=== PATIENT | female | born 1945 | race Hispanic/Latino ===

== ENCOUNTER → 2018-03-04 | Day surgery (SDC) | payer BC, MEDICARE ==
[~2018-03-04] MED LIST: INSULIN REGULAR, HUMAN 100 UNIT/1 ML 3ML VIAL ONE; JANUVIA100 MG PO; LACTULOSE20 GM/30 M PO; LANTUS 3ML100 UNITS/ SC; LIDOCAINE HCL 2% LOCAL INJ 5 ML SDV VIAL INJ ONE; LOSARTAN POTAS100 MG PO; METFORMIN HCL1000 MG PO; METOPROLOL TART50 MG PO; MIDAZOLAM HCL 2 MG/2 ML VIAL ONE; POLY IRON PO; PROPOFOL IV EMULSION 10 MG/ML 20 ML VIAL ONE; SIMVASTATIN20 MG PO
--- OUTSIDE RECORDS SUMMARY | 2018-03-04 07:30 | XMS REPORT | Clinical Summary ---
Author Author [facility] Address Unknown Phone Unavailable Care Team Providers Care Range Master Name Role Phone Sherrell Mejia MD PCP Unavailable Allergies Active Allergy Reactions Severity Noted Date Comments Sulfamethoxazole-Trimetho 11/15/2016 prim Dapagliflozin 11/15/2016 Lisinopril 11/15/2016 Current Medications Prescription Sig. Disp. Refills Start End Date Status Date sitaGLIPtin (JANUVIA) 50 Take 50 mg by mouth Active MG tablet daily. metFORMIN (GLUCOPHAGE) Take 1,000 mg by mouth 2 Active 1,000 mg tablet (two) times a day with meals. metoprolol tartrate Take 50 mg by mouth 2 Active (LOPRESSOR) 50 mg tablet (two) times a day. simvastatin (ZOCOR) 20 MG Take 20 mg by mouth Active tablet nightly. losartan (COZAAR) 100 MG Take 100 mg by mouth Active tablet daily. LACTOBACILLUS ACIDOPHILUS Take by mouth. Active (PROBIOTIC ORAL) CALCIUM CARBONATE/VITAMIN Take by mouth. Active D3 (CALCIUM 600 WITH VITAMIN D3 ORAL) polysaccharide iron Take 150 mg by mouth Active complex (FERREX 150) 150 daily. mg iron capsule amLODIPine (NORVASC) 5 mg Take 5 mg by mouth daily. Active tablet nitrofurantoin Take 100 mg by mouth 4 Active (MACRODANTIN) 100 MG (four) times a day. capsule furosemide (LASIX) 20 mg Take 1 tablet (20 mg 30 tablet 0 11/12/19 11/12/19 Active tablet total) by mouth 2 (two) 18 19 times a day. omeprazole (PriLOSEC) 20 Take 20 mg by mouth 11/12/19 Discontin MG capsule daily. 18 ued citalopram (CeleXA) 20 MG Take 20 mg by mouth 11/12/19 Discontin tablet daily. 18 ued hydroCHLOROthiazide Take 25 mg by mouth 11/12/19 Discontin (HYDRODIURIL) 25 MG daily. 18 ued tablet gabapentin (NEURONTIN) Take 100 mg by mouth 3 11/12/19 Discontin 100 mg capsule (three) times a day. 18 ued cyclobenzaprine Take 1 tablet (5 mg 20 tablet 0 10/03/20 11/02/20 (FLEXERIL) 5 mg tablet total) by mouth 3 (three) 17 17 times a day as needed for muscle spasms for up to 30 days. Active Problems Problem Noted Date Secondary esophageal varices without bleeding 12/26/2016 Cirrhosis of liver without ascites 12/26/2016 Diverticulosis of large intestine without hemorrhage 12/26/2016 Encounters Date Type Specialty Care Team Description 11/14/2017 Orders Only Cardiology Yojana Araujo MA Chest pain , unspecified type (Primary Dx) 11/12/2017 Office Visit Cardiology Clive Caruso MD Chest pain , unspecified type (Primary Dx); Essential hypertension; Type 2 diabetes mellitus without complication, without long-term current use of insulin 10/30/2017 [facility] Radiology Elsie Mejia MD Nontoxic multinodular Encounter goiter 10/30/2017 [facility] Radiology Elsie Mejia MD Encounter 10/30/2017 Ancillary Radiology Elsie Mejia MD Orders 10/24/2017 Transcribe Access Elsie Mejia MD Nontoxic multinodular Orders goiter (Primary Dx) 10/03/2017 Emergency Emergency Medicine Homer Turner MD Tension headache (Primary Dx); Cervical sprain, initial encounter 05/04/2017 [facility] Radiology Lauro Hardy MD Nonvisualization of Encounter gallbladder; Abdominal pain, right upper quadrant; Hepatic cirrhosis, unspecified hepatic cirrhosis type; Fatty metamorphosis of liver 04/17/2017 Procedure Pass Radiology 04/17/2017 Transcribe Access Lauro Hardy MD Nonvisualization of Orders gallbladder (Primary Dx); Abdominal pain, right upper quadrant; Hepatic cirrhosis, unspecified hepatic cirrhosis type; Fatty metamorphosis of liver after 03/03/2017 Family History Medical History Relation Name Comments Anuerysm Brother Cancer Father GASTRIC CANCER Colon cancer Mother Relation Name Status Comments Brother Alive Father Maternal Grandfather Maternal Grandmother Mother Paternal Grandfather Paternal Grandmother Sister Alive Social History Tobacco Use Types Packs/Day Years Used Date Never Smoker Smokeless Tobacco: Never Used Alcohol Use Drinks/Week oz/Week Comments No Sex Assigned at Date Recorded Not on file Last Filed Vital Signs Vital Sign Reading Time Taken Blood Pressure 130/80 11/12/2017 11:32 AM SERVICE ORDER TAKER Pulse 67 11/12/2017 11:32 AM SERVICE ORDER TAKER Temperature 37 C (98.6 F) 11/12/2017 11:32 AM SERVICE ORDER TAKER Respiratory Rate 20 10/03/2017 4:28 AM SERVICE ORDER TAKER Oxygen Saturation 97% 11/12/2017 11:32 AM SERVICE ORDER TAKER Inhaled Oxygen - - Concentration Weight 67.9 kg (149 lb 12.8 oz) 11/12/2017 11:32 AM SERVICE ORDER TAKER Height 154.9 cm (5' 1") 11/12/2017 11:32 AM SERVICE ORDER TAKER Body Mass Index 28.3 11/12/2017 11:32 AM SERVICE ORDER TAKER Plan of Treatment Health Maintenance Due Date Last Done Comments FOOT EXAM 1957 OPHTHALMOLOGY EXAM 1957 URINE MICROALBUMIN 1957 COLONOSCOPY 1997 ZOSTER VACCINE 2007 PNEUMOCOCCAL 2012 POLYSACCHARIDE VACCINE AGE 65 AND OVER PNEUMOCOCCAL-13 2012 INFLUENZA VACCINE 06/11/2018 MAMMOGRAM 08/08/2018 08/08/2016, 04/18/2015, 03/18/2014, Additional history exists Procedures Procedure Name Priority Date/Time Associated Diagnosis Comments ECHOCARDIOGRAM 2D Routine 11/15/2017 Chest pain, unspecified Results for this COMPLETE W MMODE SPECTRAL 9:47 AM SERVICE ORDER TAKER type procedure are in the COLOR DOPPLER (32589) results section. after 03/03/2017 Results * Echocardiogram complete w contrast and 3D if needed (11/15/2017 9:47 AM) Component Value Ref Range Ao Root Diameter 2.70 cm AoV Area, Vmax 2.16 cm2 AoV Area, VTI 2.02 cm2 AoV Mean PG 6.33 mmHg AoV Peak PG 11.95 mmHg AoV Vmax 1.73 m/s AoV VTI 0.31 m IVS,d 1.23 (A) 0.6 - 1.2 cm IVS/LVPW,2D 0.86 Left Atrium Dimension 5.39 cm Anterior LV,d 4.58 cm LV EF,2D 83.89 % LV,s 2.49 cm LVOT area 2.27 cm2 LVOT Diam,S 1.70 cm LVOT Vmax 1.64 m/s LVOT VTI 0.28 m LVPWD,d 1.44 cm PV Pk Grad 10.57 mmHg PV VMAX 1.63 m/s RVSP (TR) 36.85 mmHg TR Vpeak 2.67 mm/s MV E A ratio 0.56 mmHg TR pk grad 28.41 mmHg E wave decelartion time 297.36 msec MV Peak A Boo 1.11 m/s MV valve area p 1/2 2.55 cm2 method MV Peak E Boo 0.62 m/s MV stenosis pressure 1/2 86.23 ms time AV LVOT peak gradient 10.71 mmHg RVSP 36.85 mmHg Ao Root Diameter 2.70 cm MV mean gradient 1.90 mmHg LV SYS VOL 22.13 ml LV ECHEVERRIA VOL 96.27 ml LA area s A4C 20.48 cm2 LV SV Teich 2D 74.14 ml LV Vol s Teich PSAX 22.13 ml LVOT CO 5.34 l/min LVOT HR for LVOT CO 84.76 bpm MR peak grad 4.31 mmHg MV Vmax 1.04 m MV VTI Tips 0.19 m AoV Vmn 1.20 IVS s 2D 1.58 LV FS Teich 2D 45.59 MV AE ratio 1.78 LV FS Cube 2D 45.59 LVOT Vmn 1.09 Aov area Vmn 2.06 cm2 LVOT mean grad 5.30 mmHg IVS pct thck PLAX 28.45 % LV SV Cube 2D 80.51 ml LV vol d cube 2D 95.97 ml LV vol s cube 2D 15.46 ml LVPW pct thck PLAX 21.03 % LVPW s PLAX 1.74 cm MV Decel slope 2.09 m/s2 LA Vol MOD A4C 58.12 ml Velocity Ratio (V1/V2) 0.95 m/s EF 77.01 % E/A ratio 0.56 Specimen Performing Laboratory [facility] [address] [place] [address] Narrative The left ventricle chamber size is normal. Left Ventricular ejection fraction is 65 - 70%. Right ventricular size is normal. No hemodynamically significant valvular abnormalities. Spectral Doppler shows impaired relaxation pattern of left ventricular diastolic filling. Normal filling pressures. Inadequate TR jet to estimate pulmonary pressures. * ECG 12 lead (11/12/2017 12:44 PM) Only the most recent of 2 results within the time period is included. Component Value Ref Range Ventricular rate 64 Atrial rate 64 NV interval 158 QRSD interval 88 QT interval 454 QTC interval 468 P axis 1 51 QRS axis 1 81 T wave axis 6 EKG impression Normal sinus rhythm-Possible Inferior infarct , age undetermined-Cannot rule out Anterior infarct , age undetermined-Abnormal ECG-In automated comparison with ECG of 03-OCT-2017 01:56,-T wave inversion now evident in Inferior leads-Nonspecific T wave abnormality now evident in Anterior leads- Specimen Performing Laboratory [facility] [address] [place] [address] * Cytology (non-gynecological) request (10/30/2017 2:52 PM) Component Value Ref Range Cytology See link below for PDF Lab Report (non-gynecological) report Result status This is Final Report to [id number] Specimen Performing Laboratory [facility] DEPARTMENT OF PATHOLOGY AND GENOMIC MEDICINE [address] [place] [id number] * US Thyroid Biopsy (10/30/2017 2:38 PM) Specimen Performing Laboratory [facility] [address] [place] [address] Narrative EXAMINATION:US THYROID BIOPSY CLINICAL HISTORY:E04.2 Nontoxic multinodular goiter, E04.2 COMPARISON:None. TECHNIQUE: The risks, benefits, and alternatives were discussed with the patient, and written informed consent was obtained. A site for needle placement was selected and theRight neck.The skin was prepped and draped in the usual sterile fashion. After local administration of 1 % lidocaine, and using ultrasound guidance, five 25-gauge needle aspiration samples were obtained. The specimenswere given to a electrical design technologist in attendance. The specimens were evaluated.The pathologist in attendance stated that the specimens were adequate. The patient has been instructed to follow-up per for the results of the biopsy. IMPRESSION: There were no complications. [facility]-[id number] Procedure Note Interface, Radiology Results Incoming - 10/30/2017 3:35 PM SERVICE ORDER TAKER EXAMINATION: US THYROID BIOPSY CLINICAL HISTORY: E04.2 Nontoxic multinodular goiter, E04.2 COMPARISON: None. TECHNIQUE: The risks, benefits, and alternatives were discussed with the patient, and written informed consent was obtained. A site for needle placement was selected and theRight neck. The skin was prepped and draped in the usual sterile fashion. After local administration of 1 % lidocaine, and using ultrasound guidance, five 25-gauge needle aspiration samples were obtained. The specimens were given to a electrical design technologist in attendance. The specimens were evaluated. The pathologist in attendance stated that the specimens were adequate. The patient has been instructed to follow-up per for the results of the biopsy. IMPRESSION: There were no complications. [facility]-[id number] * ECG ED Preliminary Interpretation - NOT AN ORDER (10/03/2017 6:12 AM) Narrative Homer Turner MD 10/03/20176:12 AM ECG ED Preliminary Interpretation - Not an Order Performed by: HOMER TURNER Authorized by: HOMER TURNER ECG reviewed by ED Physician in the absence of a invoice checker: yes Interpretation: Interpretation: normal Rate: ECG rate:74 Rhythm: Rhythm: sinus rhythm QRS: QRS axis:Normal QRS intervals:Normal Conduction: Conduction: normal ST segments: ST segments:Normal T waves: T waves: non-specific and flattening Flattening:V2 and V3 Comments: Completed on 10/03/2017 at 0156. * CTA Neck W Wo Contrast (10/03/2017 3:20 AM) Specimen Performing Laboratory [address] [address] Narrative EXAMINATION: CT ANGIOGRAM NECK W WO CONTRAST CLINICAL HISTORY: left sided neck painHTNfamily hx of aneurysm COMPARISON:None TECHNIQUE: Imaging of the cervical circulation was obtained from the upper thorax to the skull base during the arterial phase of enhancement. Postprocessing was performed with MIP multiplanar and 3D reconstructed images. CT scans are performed using radiation dose reduction techniques. Technical factors are evaluated and adjusted to ensure appropriate moderation of exposure. Automated dose management technology is applied to adjust radiation exposure while achieving a diagnostic quality image. FINDINGS: Left-sided aortic arch with normal branching pattern. Mild calcific plaque within the aortic arch. Retropharyngeal course of the bilateral carotid arteries as a variant. Mild calcific plaque within the bilateral proximal internal carotid arteries, without significant stenosis. The common carotid arteries, carotid bulbs, internal carotid arteries and external carotid arteries are opacified with 0% stenosis by NASCET criteria. The vertebral arteries are patent throughout the visualized cervical segments without significant stenosis. The vertebral arteries are roughly codominant. Visualized upper mediastinum shows no mass lesion. Lung apices are clear. Visualized soft tissues shows no mass, adenopathy or fluid collection. Visualized osseous structures shows no acute fracture or dislocation. Few thyroid nodules up to 0.9 cm in the right lower lobe. Typically no follow- up is recommended for nodules of this size. IMPRESSION: No hemodynamically significant narrowing of the cervical vessels by NASCET criteria. [facility]-[id number] Procedure Note Interface, Radiology Results Incoming - 10/03/2017 3:31 AM SERVICE ORDER TAKER EXAMINATION: CT ANGIOGRAM NECK W WO CONTRAST CLINICAL HISTORY: left sided neck pain HTN family hx of aneurysm COMPARISON: None TECHNIQUE: Imaging of the cervical circulation was obtained from the upper thorax to the skull base during the arterial phase of enhancement. Postprocessing was performed with MIP multiplanar and 3D reconstructed images. CT scans are performed using radiation dose reduction techniques. Technical factors are evaluated and adjusted to ensure appropriate moderation of exposure. Automated dose management technology is applied to adjust radiation exposure while achieving a diagnostic quality image. FINDINGS: Left-sided aortic arch with normal branching pattern. Mild calcific plaque within the aortic arch. Retropharyngeal course of the bilateral carotid arteries as a variant. Mild calcific plaque within the bilateral proximal internal carotid arteries, without significant stenosis. The common carotid arteries, carotid bulbs, internal carotid arteries and external carotid arteries are opacified with 0% stenosis by NASCET criteria. The vertebral arteries are patent throughout the visualized cervical segments without significant stenosis. The vertebral arteries are roughly codominant. Visualized upper mediastinum shows no mass lesion. Lung apices are clear. Visualized soft tissues shows no mass, adenopathy or fluid collection. Visualized osseous structures shows no acute fracture or dislocation. Few thyroid nodules up to 0.9 cm in the right lower lobe. Typically no follow- up is recommended for nodules of this size. IMPRESSION: No hemodynamically significant narrowing of the cervical vessels by NASCET criteria. [facility]-[id number] * CT Head Wo Contrast (10/03/2017 3:05 AM) Specimen Performing Laboratory [facility] [address] [place] [address] Narrative EXAMINATION: CT HEAD WO CONTRAST CLINICAL HISTORY: headacheneck painfamily hx aneurysm COMPARISON:CT 04/18/2016. TECHNIQUE: Noncontrast enhanced images of the brain were obtained from the skull base to the vertex. Both soft tissue and bone reconstruction algorithms were performed. CT scans are performed using radiation dose reduction techniques (iterative reconstruction and/or automated exposure control). Technical factors are evaluated and adjusted to ensure appropriate moderation of exposure. Automated dose management technology is applied to adjust radiation exposure while achieving a diagnostic quality image. FINDINGS: Mild generalized brain parenchymal volume loss. Nonspecific hypoattenuation of the supratentorial white matter, likely chronic microangiopathic changes. Mild cerebrovascular calcifications. The brain parenchyma is otherwise unremarkable. The frias-white matter differentiation is preserved. No evidence of acute intra or extra-axial hemorrhage, mass, mass effect or acute territorial infarction. There is no acute hydrocephalus. Basal cisterns are patent. No acute soft tissue hematoma or laceration. No skull fractures or aggressive bony lesions. Paranasal sinuses and mastoid air cells are clear. Orbits are normal. IMPRESSION: No acute intracranial abnormality identified. [facility]-[id number] Procedure Note Hm Interface, Radiology Results Incoming - 10/03/2017 3:12 AM SERVICE ORDER TAKER EXAMINATION: CT HEAD WO CONTRAST CLINICAL HISTORY: headache neck pain family hx aneurysm COMPARISON: CT 04/18/2016. TECHNIQUE: Noncontrast enhanced images of the brain were obtained from the skull base to the vertex. Both soft tissue and bone reconstruction algorithms were performed. CT scans are performed using radiation dose reduction techniques (iterative reconstruction and/or automated exposure control). Technical factors are evaluated and adjusted to ensure appropriate moderation of exposure. Automated dose management technology is applied to adjust radiation exposure while achieving a diagnostic quality image. FINDINGS: Mild generalized brain parenchymal volume loss. Nonspecific hypoattenuation of the supratentorial white matter, likely chronic microangiopathic changes. Mild cerebrovascular calcifications. The brain parenchyma is otherwise unremarkable. The frias-white matter differentiation is preserved. No evidence of acute intra or extra-axial hemorrhage, mass, mass effect or acute territorial infarction. There is no acute hydrocephalus. Basal cisterns are patent. No acute soft tissue hematoma or laceration. No skull fractures or aggressive bony lesions. Paranasal sinuses and mastoid air cells are clear. Orbits are normal. IMPRESSION: No acute intracranial abnormality identified. [facility]-[id number] * Estimated GFR (10/03/2017 2:03 AM) Component Value Ref Range GFR Non Af Amer 71 mL/min/1.73 m2 GFR Af Amer 86 mL/min/1.73 m2 Comment: Chronic kidney disease: <60 mL/min/1.73m2 Kidney failure: <15 mL/min/1.73m2 The estimated GFR is calculated from the IDMS-traceable Modification of Diet in Renal Disease Equation. The accuracy of the calculation is poor when the creatinine is normal. Calculated values >90 mL/min/1.73m2 are not reported. This equation has not been validated in children (<18 years), women, the elderly (>70 years), or ethnic groups other than Caucasians and Americans. Specimen Performing Laboratory Plasma specimen [facility] DEPARTMENT OF PATHOLOGY AND GENOMIC MEDICINE [address] [place] [address] [place] [address] * Troponin (10/03/2017 2:03 AM) Component Value Ref Range Troponin <0.01 0.00 - 0.60 ng/mL Comment: 0.11 - 1.49 ng/ml May indicate increased risk of acute coronary syndrome. >=1.5 ng/ml Consistent with acute myocardial infarction. The diagnostic value of a single normal or non-diagnostic result is questionable. Serial samples at 2-6 hour intervals are required to rule out acute myocardial injury. Specimen Performing Laboratory Plasma specimen [facility] DEPARTMENT OF PATHOLOGY AND GENOMIC MEDICINE [address] [place] [address] [place] [address] * CBC with platelet and differential (10/03/2017 2:03 AM) Component Value Ref Range WBC 2.7 (L) 4.2 - 11.0 k/uL RBC 3.62 (L) 4.04 - 5.86 m/uL HGB 11.2 (L) 11.5 - 15.3 g/dL HCT 31.5 (L) 34.0 - 45.0 % MCV 87.0 80.0 - 98.0 fL MCH 30.9 27.0 - 34.0 pg MCHC 35.6 31.5 - 36.5 g/dL RDW - SD 41.9 37.0 - 51.0 fL MPV 11.0 (H) 7.4 - 10.4 fL Platelet count 93 (L) 150 - 400 k/uL Nucleated RBC 0.00 /100 WBC Neutrophils 58.8 36.0 - 66.0 % Lymphocytes 23.9 (L) 24.0 - 44.0 % Monocytes 11.4 (H) 0.0 - 6.0 % Eosinophils 4.8 0.0 - 6.0 % Basophils 0.7 0.0 - 1.2 % Immature granulocytes 0.4 0.0 - 1.0 % Specimen Performing Laboratory Blood [facility] DEPARTMENT OF PATHOLOGY AND GENOMIC MEDICINE [address] [place] [address] * Creatine kinase, total (CPK) (10/03/2017 2:03 AM) Component Value Ref Range Creatine kinase 80 61 - 224 U/L Specimen Performing Laboratory Plasma specimen [facility] DEPARTMENT OF PATHOLOGY AND GENOMIC MEDICINE [address] [place] [address] * Comprehensive metabolic panel (10/03/2017 2:03 AM) Component Value Ref Range Sodium 142 135 - 150 mEq/L Potassium 3.6 3.5 - 5.0 mEq/L Chloride 107 100 - 109 mEq/L CO2 21 (L) 24 - 32 mmol/L Anion gap 14 7 - 15 mEq/L Comment: Starting from February , anion gap calculation no longer incorporates potassium. Please note the change. BUN 9 7 - 18 mg/dL Creatinine 0.8 0.8 - 1.5 mg/dL Glucose 206 (H) 65 - 100 mg/dL Calcium 8.9 8.6 - 10.7 mg/dL Protein 6.9 6.3 - 8.2 g/dL Albumin 3.4 3.2 - 5.0 g/dL A/G ratio 1.0 0.7 - 3.8 Alkaline phosphatase 184 (H) 30 - 120 U/L AST 43 (H) 15 - 37 U/L ALT 40 30 - 65 U/L Total bilirubin 0.9 0.2 - 1.2 mg/dL Specimen Performing Laboratory Plasma specimen [facility] DEPARTMENT OF PATHOLOGY AND GENOMIC MEDICINE [address] [place] [address] * MRI Abdomen W Wo Contrast (05/04/2017 10:43 AM) Specimen Performing Laboratory [facility] [address] [place] [address] Narrative EXAMINATION:MRI ABDOMEN W WO CONTRAST CLINICAL HISTORY:R93.2 Abnormal findings on diagnostic imaging of liver and biliary tract, R10.11 Right upper quadrant pain, R93.2 TECHNIQUE: Multiplanar multisequence MR images of the abdomen were obtained pre - and post dynamic intravenous administration of Gadolinium.. COMPARISON:October 16, 2006, ultrasound April 19, 2016 IMPRESSION: 1.Diffuse cirrhotic changes throughout the liver unchanged from prior no focal mass is present. 2.Findings compatible portal hypertension. Spleen no remains enlarged measuring at least 14 cm. Numerous paraesophageal varices, splenic hilar varices are present. There is recanalization of the paraumbilical vein 3.Portal vein is not dilated and there is no evidence of thrombus. 4.The pancreas, adrenals, and kidneys are within normal limits 5.No significant adenopathy free fluid present 6.The small bowel and colon are unremarkable. 7.No intra or extrahepatic ductal dilatation is present. Gallbladder is unremarkable 8.Lung Bases are clear SUMMARY: No interval change from prior. Diffuse cirrhotic changes throughout the liver. Findings compatible with portal hypertension Incidental Abdominal findings [facility] PQRS #[id number] required reporting elements: Liver < 0.5 cm: none Recommendation:n/a Cystic Renal < 1 cm: none Recommendation:n/a Adrenal < 1 cm:none Recommendation:n/a [id number] Procedure Note Hm Interface, Radiology Results Incoming - 05/04/2017 11:06 AM CDT EXAMINATION: MRI ABDOMEN W WO CONTRAST CLINICAL HISTORY: R93.2 Abnormal findings on diagnostic imaging of liver and biliary tract, R10.11 Right upper quadrant pain, R93.2 TECHNIQUE: Multiplanar multisequence MR images of the abdomen were obtained pre - and post dynamic intravenous administration of Gadolinium. . COMPARISON: October 16, 2006, ultrasound April 19, 2016 IMPRESSION: 1. Diffuse cirrhotic changes throughout the liver unchanged from prior no focal mass is present. 2. Findings compatible portal hypertension. Spleen no remains enlarged measuring at least 14 cm. Numerous paraesophageal varices, splenic hilar varices are present. There is recanalization of the paraumbilical vein 3. Portal vein is not dilated and there is no evidence of thrombus. 4. The pancreas, adrenals, and kidneys are within normal limits 5. No significant adenopathy free fluid present 6. The small bowel and colon are unremarkable. 7. No intra or extrahepatic ductal dilatation is present. Gallbladder is unremarkable 8. Lung Bases are clear SUMMARY: No interval change from prior. Diffuse cirrhotic changes throughout the liver. Findings compatible with portal hypertension Incidental Abdominal findings [facility] PQRS #[id number] required reporting elements: Liver < 0.5 cm: none Recommendation: n/a Cystic Renal < 1 cm: none Recommendation: n/a Adrenal < 1 cm: none Recommendation: n/a [id number] * POC creatinine (05/04/2017 9:33 AM) Component Value Ref Range POC creatinine 0.8 0.8 - 1.5 mg/dl Specimen Performing Laboratory Blood [facility] DEPARTMENT OF PATHOLOGY AND GENOMIC MEDICINE [address] [address] after 03/03/2017 Insurance Payer Benefit Subscriber ID Type Phone Address Plan / Group [facility] xxxxxxxxxxxx HMO [facility] IN ARE[place]/HMO BLUE [employer]S MEDICARE MEDICARE xxxxxxxxxx Medicare [place], [place] PART A AND B
--- OUTSIDE RECORDS SUMMARY | 2018-03-04 07:30 | XMS REPORT ---
Author Author Admin, [place] Organization [facility] Address Unknown Phone Unavailable Allergies, Adverse Reactions, Alerts Allergy Name Reaction Description Start Date Severity Status Provider BACTRIM Swelling Critical Active Blanca Morales MD LISINOPRIL (LISINOPRIL TABS) Moderate Active Elsie Mejia MD Conditions or Problems Problem Name Problem Code Onset Date Status Entry Date Provider Comment Standard Description Annotate Diabetic retinopathy 250.50 Active Angela Virgilio Junior DO Diabetes mellitus with ophthalmic manifestations, type II or unspecified type, not stated as uncontrolled mild, noted 01/26 Optho: Dr. Mcclendon Leg edema, bilateral 782.3 Active Elsie Mejia MD Edema Left ventricular diastolic dysfunction 429.9 Active Elsie Mejia MD Heart disease, unspecified Seen on echo 05/10/16 Left ventricular hypertrophy 429.3 Active Elsie Mejia MD Cardiomegaly Mild, seen on echo 05/10/16 Breast pain, bilateral 611.71 Active Elsie Mejia MD Mastodynia Dry mouth 527.7 Active Elsie Mejia MD Disturbance of salivary secretion Leg pain, bilateral 729.5 Active Elsie Mejia MD Pain in limb Of the inner thighs that radiates down Multiple thyroid nodules 241.1 Active Angela Virgilio Pariani DO Nontoxic multinodular goiter 10/27 FNA: rare follicular cell culters, neg for malignancy Allergic rhinitis 477.9 Active Angela Virgilio Pariani DO Allergic rhinitis, cause unspecified Hepatic encephalopathy 572.2 Active Angela Virgilio Pariani DO Hepatic encephalopathy 04/27 ammonia ~ 89 Abnormal EKG 794.31 Active Angela Junior DO Nonspecific abnormal electrocardiogram [ECG] [EKG] 02/25 Sinus isaac, Low V QRS, pos inf infarct (seen on previous EKGs) Cardio: Dr. Brown Memory impairment 780.9 Active Angela Junior DO Other general symptoms Splenomegaly 789.2 Active Angela Junior DO Splenomegaly mild, 12.5 cm per U/S 10/26 2/2 Fatty Liver Depression, major 296.20 Active Angela Junior DO Major depressive disorder, single episode, unspecified degree 03/27 PHQ 9 =21 (severe, on Celexa 40 mg) Needs vaccination for influenza V04.81 Active Angela uJnior DO Need for prophylactic vaccination and inoculation against influenza Preventive health care V70.0 Active Angela Junior DO Routine general medical examination at a health care facility Osteoporosis, Screening V82.81 Active Angela Junior DO Screening for osteoporosis Vaccine against disease V05.9 Active Elsie Mejia MD Need for prophylactic vaccination and inoculation against unspecified single disease Fatigue 780.79 Active Angela Junior DO Other malaise and fatigue 07/28 [place] Sleepiness Scale=13 Anxiety 300.00 Active Angela Junior DO Anxiety state, unspecified 11/27 MICHELLE 7=12 (moderate anxiety) on Celexa 20 mg Pancytopenia 284.1 Active Angela Virgilio Junior DO Pancytopenia 2/2 splenomegaly 2/2 Fatty Liver Heme: Dr. 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 Alex Vaughan Vitamin D deficiency 268.9 Active Elsie Mejia MD Unspecified vitamin D deficiency Cyst of maxillary sinus 478.19 Active Elsie Mejia MD Other disease of nasal cavity and sinuses 21mm retention cyst in the right maxillary sinus Family history of brain aneurysm V17.2 Active Elsie Mejia MD Family history of other neurological diseases Tinnitus, subjective 388.31 Active Angela Virgilio Robertsdomitila DO Subjective tinnitus ENT: Dr. Alex Vaughan Dystrophic nails 703.8 Active Mahendra Landis MD Other specified diseases of nail OVERWEIGHT 278.02 Active Elsie Mejia MD Overweight MAMMOGRAM, SCREENING V76.12 Active Elsie Mejia MD Other screening mammogram Hx of diverticulitis V12.79 Active Angela Virgilio Alejandradomitila Personal history of other diseases of digestive system GI: Dr. Bob CIRRHOSIS 571.5 Active Angela Junior DO Cirrhosis of liver without mention of alcohol non-alcoholic, hx of GE varices 2/2 fatty liver dz Hepatology: Dr. Hardy INSOMNIA 780.52 Active Angela Junior DO Insomnia, unspecified HELICOBACTER PYLORI GASTRITIS, HX OF V12.79 Active Elsie Mejia MD Personal history of other diseases of digestive system DIABETES MELLITUS 250.00 Active Angelaeliane Junior DO Diabetes mellitus without mention of complication, type II or unspecified type, not stated as uncontrolled FATTY LIVER DISEASE 571.8 Active Elsie Mejia MD Other chronic nonalcoholic liver disease Hepatology: was seeing Dr. Hardy, but he no longer takes her insurance s/p Liver Biopsy 10/23 steatohepatitis G3, stage 3-4 GERD 530.81 Active Angela Junior DO Esophageal reflux GI: Dr. 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 Elsie Mejia MD Congenital anomaly of gastrointestinal vessel UTI 599.0 Inactive Angela Virgilio Pariani DO Urinary tract infection, site not specified UTI ICD-599.0 Inactive Angela Virgilio Pariani DO 01/13 Urine odor ICD-791.9 Inactive Angela Virgilio Pariani DO Urinary tract infection 599.0 Inactive Elsie Mejia MD Urinary tract infection, site not specified Urinary tract infection ICD-599.0 Inactive Elsie Mejia MD Chest pain, NOS ICD-786.50 Inactive Angela Virgilio Pariani DO BRONCHITIS, ACUTE ICD-466.0 Inactive Elsie Mejia MD Cough ICD-786.2 Inactive Elsie Mejia MD Elevated creatinine ICD-790.4 Inactive Angela Virgilio Pariani DO Body aches ICD-780.99 Inactive Angela Virgilio Pariani DO Myalgia ICD-729.1 Inactive Angela Virgilio Pariani DO Hepatic encephalopathy 572.2 Inactive Angela Virgilio Pariani DO Hepatic encephalopathy 04/27 ammonia ~ 89 Increased ammonia level 790.99 Inactive Angela Virgilio Pariani DO Other nonspecific findings on examination of blood 04/27 ammonia ~ 89 Syncope ICD-780.2 Inactive Angela Virgilio Pariani DO Abdominal pain ICD-789.00 Inactive Angela Virgilio Pariani DO Anemia ICD-285.9 Inactive Angela Virgilio Pariani DO Black stools ICD-578.1 Inactive Angela Virgilio Pariani DO Liver lesion ICD-573.8 Inactive Angela Virgilio Pariani DO Need for prophylactic vaccination against streptococcus pneumoniae ( Pneumococcus) V03.82 Inactive Angela Virgilio Pariani DO Need for prophylactic vaccination against Streptococcus pneumoniae [ pneumococcus] Irritability ICD-799.22 Inactive Angela Virgilio Pariani DO Intertrigo, candidal ICD-695.89 Inactive Angela Virgilio Pariani DO Vaginal candidiasis ICD-112.1 Inactive Angela Virgilio Pariani DO Pericarditis, 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 Inactive Elsie Mejia MD BMI 29.0-29.9 Inactive Angela Virgilio Pariani DO Supraclavicular lymphadenopathy ICD-785.6 Inactive Angela Virgilio Pariani DO Dizziness ICD-780.4 Inactive Angela Virgilio Pariani DO Localized swelling on lower legs, bilateral ICD-782.2 Inactive Angela Virgilio Pariani DO Abdominal pain, acute left side ICD-789.00 Inactive Elsie Mejia MD Abdominal pain, right lower quadrant ICD-789.03 Inactive Elsie Mejia MD Atypical face pain ICD-350.2 Inactive Elsie Mejia MD Cellulitis, digit 681.9 Inactive Elsie Mejia MD Cellulitis and abscess of unspecified digit right great toe Cellulitis, digit ICD-681.9 Inactive Elsie Meija MD Headache, atypical ICD-784.0 Inactive Elsie Mejia MD UTI ICD-599.0 Inactive Elsie Mejia MD Diabetic peripheral neuropathy ICD-250.60 Inactive Angela Junior DO Chest pain, atypical ICD-786.59 Inactive Elsie Mejia MD Ganglion cyst, wrist, left ICD-727.41 Inactive Elsie Mejia MD Neck pain, chronic ICD-723.1 Inactive Elsie Mejia MD MUSCLE CRAMPS ICD-729.82 Inactive Elsie Mejia MD CELLULITIS ICD-682.9 Inactive Elsie Mejia MD 2014 INJURY, LEG ICD-916.8 Inactive Elsie Mejia MD TINEA CRURIS ICD-110.3 Inactive Elsie Mejia MD URINARY TRACT INFECTION ICD-599.0 Inactive Elsie Mejia MD NEPHROLITHIASIS ICD-592.0 Inactive Elsie Mejia MD RECURRENT UTI'S, HX OF ICD-V13.00 Inactive Elsie Mejia MD THROMBOCYTOPENIA ICD-287.5 Inactive Angela Robertsani DO DIVERTICULAR DISEASE ICD-562.10 Inactive Angela Virgilio Pariani DO NEED PROPH VACCINATION W/UNSPEC COMB VACCINE V06.9 Inactive 2013 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 Need for prophylactic vaccination with unspecified combined vaccine NEED PROPH VACCINATION W/UNSPEC COMB VACCINE ICD-V06.9 Inactive 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 NEED PROPH VACCINATION W/UNSPEC COMB VACCINE ICD-V06.9 Inactive Elsie Mejia MD NEED PROPH VACC&INOCULAT AGAINST VIRAL HEP ICD-V05.3 Inactive Elsie Mejia MD NEED PROPHYLACTIC VACCINATION&INOCULATION FLU ICD-V04.81 Inactive Angela Virgilio Pariani DO Urine odor 791.9 Resolved Angela Virgilio Pariani DO Other nonspecific findings on examination of urine Chest pain, NOS 786.50 Resolved Angela Virgilio Pariani DO Unspecified chest pain BRONCHITIS, ACUTE 466.0 Resolved Elsie Mejia MD Acute bronchitis Cough 786.2 Resolved Elsie Mjeia MD Cough Elevated creatinine 790.4 Resolved Angela Virgilio Pariani DO Nonspecific elevation of levels of transaminase or lactic acid dehydrogenase [LDH] Body aches 780.99 Resolved Angela Virgilio Pariani DO Other general symptoms Myalgia 729.1 Resolved Angela Virgilio Pariani DO Myalgia and myositis, unspecified Syncope 780.2 Resolved Angela Virgilio Pariani DO Syncope and collapse Abdominal pain 789.00 Resolved Angela Virgilio Pariani DO Abdominal pain, unspecified site Anemia 285.9 Resolved Angela Virgilio Pariani DO Anemia, unspecified 09/26 PSB normochromic normocytic thought to be 2/2 [facility] Black stools 578.1 Resolved Angela Virgilio Pariani DO Blood in stool Liver lesion 573.8 Resolved Angela Virgilio Pariani DO Other specified disorders of liver Hepatology: Dr. 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/01/16 BMI 29.0-29.9 Resolved Angela Virgilio Pariani DO Body Mass Index 29.0-29.9, adult Pancytopenia 284.1 Resolved Angela Virgilio Pariani DO Pancytopenia Supraclavicular lymphadenopathy 785.6 Resolved Angela Virgilio Pariani DO Enlargement of lymph nodes Dizziness 780.4 Resolved Angela Virgilio Pariani DO Dizziness and giddiness Localized swelling on lower legs, bilateral 782.2 Resolved 08/23 Angela Virgilio Pariani DO Localized superficial swelling, mass, or lump Abdominal pain, acute left side 789.00 Resolved Elsie Mejia MD Abdominal pain, unspecified site Abdominal pain, right lower quadrant 789.03 Resolved Elsie Mejia MD Abdominal pain, right lower quadrant Worse with prolonged sitting; Not associated with nausea, vomiting, or bowel changes. Atypical face pain 350.2 Resolved Elsie Mejia MD Atypical face pain Headache, atypical 784.0 Resolved Elsie Mejia MD Headache UTI 599.0 Resolved Elsie Mejia MD Urinary tract infection, site not specified Diabetic peripheral neuropathy 250.60 Resolved Angela Junior DO Diabetes mellitus with neurological manifestations, type II or unspecified type, not stated as uncontrolled Chest pain, atypical 786.59 Resolved Elsie Mejia MD Other chest pain Ganglion cyst, wrist, left 727.41 Resolved Elsie Mejia MD Ganglion of joint Neck pain, chronic 723.1 Resolved Elsie Mejia MD Cervicalgia MUSCLE CRAMPS 729.82 Resolved Elsie Mejia MD Cramp of limb CELLULITIS 682.9 Resolved Elsie Mejia MD Cellulitis and abscess of unspecified sites INJURY, LEG 916.8 Resolved Elsie eMjia MD Other and unspecified superficial injury of hip, thigh, leg, and ankle, without mention of infection TINEA CRURIS 110.3 Resolved Elsie Mejia MD Dermatophytosis of groin and perianal area URINARY TRACT INFECTION 599.0 Resolved Elsie Mejia MD Urinary tract infection, site not specified NEPHROLITHIASIS 592.0 Resolved Elsie Mejia MD Calculus of kidney 1.5mm stone seen on CT September 2014 RECURRENT UTI'S, HX OF V13.00 Resolved Elsie Mejia MD Personal history of unspecified urinary disorder THROMBOCYTOPENIA 287.5 Resolved Angela Junior DO Thrombocytopenia, unspecified DIVERTICULAR DISEASE 562.10 Resolved Angela Junior DO Diverticulosis of colon (without mention of hemorrhage) GI: Dr. Bob MAMMOGRAM, SCREENING V76.12 Resolved Elsie Mejia MD Other screening mammogram NEED PROPH VACCINATION W/UNSPEC COMB VACCINE V06.9 Resolved 2013 Elsie Mejia MD Need for prophylactic vaccination with unspecified combined vaccine INSOMNIA 780.52 Resolved Angela Junior DO Insomnia, unspecified NEED PROPH VACC&INOCULAT AGAINST VIRAL HEP V05.3 Resolved 11/23 Elsie Mejia MD Need for prophylactic vaccination and inoculation against viral hepatitis NEED PROPHYLACTIC VACCINATION&INOCULATION FLU V04.81 Resolved Angelaeliane Junior DO Need for prophylactic vaccination and inoculation against influenza DIABETES MELLITUS 250.00 Resolved Elsie Mejia MD Diabetes mellitus without mention of complication, type II or unspecified type, not stated as uncontrolled Medication List Medication Instructions Start Date Stop Date Generic Name NDC Status Provider Patient Instruction MEDICAL COMPRESSION SOCKS Please fit for size ELASTIC BANDAGES & SUPPORTS [id number] Active Angela Virgilio Paridomitila DO Active TRAZODONE HCL 50 MG ORAL TABLET take 1 tab By Mouth Every at bedtime for insomnia TRAZODONE HCL 36890766198 Active Angela Virgilio Pariani DO Active FUROSEMIDE 20 MG ORAL TABLET take 1 tab By Mouth Twice a Day for LE swelling FUROSEMIDE 72397446782 Active Angela Virgilio Pariani DO Active FLONASE 50 MCG/ACT NASAL SUSPENSION 1 spray in each nostril Every day prn allergies FLUTICASONE PROPIONATE 09395733878 Active Angela Virgilio Pariani DO Active LACTULOSE ENCEPHALOPATHY 10 GM/15ML ORAL SOLUTION 30 cc 1-2 X's/day, titrate to 3 soft stools daily LACTULOSE ENCEPHALOPATHY 49012601645 Active Angela Virgilio Pariani DO Active LORATADINE 10 MG ORAL TABLET take 1 tab By Mouth Every day prn for allergies LORATADINE 90394340772 Active Angela Virgilio Pariani DO Active CALCIUM 500 MG ORAL TABLET take 1 tab By Mouth bid CALCIUM 26946908022 Active Angela Junior DO Active METFORMIN HCL 1000 MG ORAL TABLET take 1 tab By Mouth Twice a Day for diabetes METFORMIN HCL 21525156681 Active Angela Junior DO Active ALIGN 4 MG ORAL CAPSULE take 1 tab By Mouth Every day PROBIOTIC PRODUCT 87470505323 Active Angela Junior DO Active VITAMIN D 1000 UNIT ORAL TABLET take 2 tabs Every day CHOLECALCIFEROL 33097763833 Active Angela Junior DO Active JANUVIA 100 MG ORAL TABLET One By Mouth daily for diabetes SITAGLIPTIN PHOSPHATE 85292834290 Active Angela Junior DO Active LANCETS Use daily to check blood sugar LANCETS 47911830444 Active Elsie Mejia MD Active ONETOUCH ULTRA BLUE IN VITRO STRIP Use daily to check blood sugar GLUCOSE BLOOD 59418471889 Active Elsie Mejia MD Active BD PEN NEEDLE SHORT U/F 31G X 8 MM Use as directed to dose lantus INSULIN PEN NEEDLE 78910191954 Active Angela Junior DO Active LANTUS SOLOSTAR 100 UNIT/ML SUBCUTANEOUS SOLUTION PEN-INJECTOR 25 units take at bedtime for diabetes INSULIN GLARGINE 65125826912 Active Angela Junior DO Active METOPROLOL TARTRATE 25 MG ORAL TABLET Take one tab By Mouth Twice a Day for blood pressure METOPROLOL TARTRATE 39337575152 Active Angela Junior DO Active LOSARTAN POTASSIUM 100 MG ORAL TABLET take one tab daily for blood pressure LOSARTAN POTASSIUM 50412185312 Active Angela Junior DO Active SIMVASTATIN 20 MG ORAL TABLET One By Mouth take at bedtime for cholesterol SIMVASTATIN 18969082516 Active Angela Junior DO Active MACROBID 100 MG ORAL CAPSULE 1 tab By Mouth Twice a Day X 7 days for UTI 2017 MACROBID 100 MG ORAL CAPSULE 0217364 NITROFURANTOIN MONOHYD MACRO Inactive KEFLEX 500 MG ORAL CAPSULE One By Mouth Twice a Day for 5 days for bladder infection KEFLEX 500 MG ORAL CAPSULE 236990 CEPHALEXIN Inactive DOXYCYCLINE HYCLATE 100 MG ORAL TABLET one tablet twice daily for 7 days 2016 DOXYCYCLINE HYCLATE 100 MG ORAL TABLET 9079396 DOXYCYCLINE HYCLATE Inactive PROAIR HFA 108 (90 BASE) MCG/ACT INHALATION AEROSOL SOLUTION 2 puffs every 4 - 6 hours as needed PROAIR HFA 108 (90 BASE) MCG/ACT INHALATION AEROSOL SOLUTION ALBUTEROL SULFATE Inactive ROBITUSSIN DM 100-10 MG/5ML ORAL SYRUP 10 ml every 6 hrs as needed for cough ROBITUSSIN DM 100-10 MG/5ML ORAL SYRUP 904386 DEXTROMETHORPHAN-GUAIFENESIN Inactive AMLODIPINE BESYLATE 5 MG ORAL TABLET 1 tab by mouth daily for blood pressure AMLODIPINE BESYLATE 5 MG ORAL TABLET 205516 AMLODIPINE BESYLATE Inactive XIFAXAN 550 MG ORAL TABLET take 1 tab By Mouth Twice a Day 11/08 XIFAXAN 550 MG ORAL TABLET RIFAXIMIN Inactive BACLOFEN 10 MG ORAL TABLET take 1/2-1 tablet By Mouth Three Times a Day As Needed body aches BACLOFEN 10 MG ORAL TABLET 838067 BACLOFEN Inactive LACTULOSE 10 GM/15ML ORAL SOLUTION take 15 ml By Mouth Every day LACTULOSE 10 GM/15ML ORAL SOLUTION 820754 LACTULOSE Inactive FERREX 150 150 MG ORAL CAPSULE take 1 tab By Mouth Every day 2017 FERREX 150 150 MG ORAL CAPSULE 117075 POLYSACCHARIDE IRON COMPLEX Inactive OMEPRAZOLE 20 MG ORAL CAPSULE DELAYED RELEASE take 1 tabs a day OMEPRAZOLE 20 MG ORAL CAPSULE DELAYED RELEASE 590590 OMEPRAZOLE Inactive BENEFIBER ORAL POWDER As Needed constipation BENEFIBER ORAL POWDER WHEAT DEXTRIN Inactive ASPIR-81 81 MG ORAL TABLET DELAYED RELEASE ASPIR- 81 81 MG ORAL TABLET DELAYED RELEASE 938397 ASPIRIN Inactive FLUCONAZOLE 150 MG ORAL TABLET One By Mouth every other day for 3 doses for severe yeast infection FLUCONAZOLE 150 MG ORAL TABLET 356336 FLUCONAZOLE Inactive FARXIGA 10 MG ORAL TABLET One By Mouth daily for diabetes FARXIGA 10 MG ORAL TABLET DAPAGLIFLOZIN PROPANEDIOL Inactive HYDROCHLOROTHIAZIDE 25 MG ORAL TABLET 1/2 by mouth every day for blood pressure HYDROCHLOROTHIAZIDE 25 MG ORAL TABLET 534028 HYDROCHLOROTHIAZIDE Inactive CEPHALEXIN 500 MG ORAL CAPSULE One By Mouth Three Times a Day for skin infection CEPHALEXIN 500 MG ORAL CAPSULE 368124 CEPHALEXIN Inactive CIPRO 500 MG ORAL TABLET 1 by mouth twice a day CIPRO 500 MG ORAL TABLET 560410 CIPROFLOXACIN HCL Inactive CULTURELLE DIGESTIVE HEALTH ORAL CAPSULE 1 By Mouth twice (probiotic) during time of antibiotics CULTURELLE DIGESTIVE HEALTH ORAL CAPSULE LACTOBACILLUS-INULIN Inactive CICLOPIROX 8 % EXTERNAL SOLUTION Apply to affected nail every night for up to 6 months CICLOPIROX 8 % EXTERNAL SOLUTION 832752 CICLOPIROX Inactive GABAPENTIN 300 MG ORAL CAPSULE take 1 tab By Mouth Every hs 03/13 GABAPENTIN 300 MG ORAL CAPSULE 188738 GABAPENTIN Inactive CLINDAMYCIN HCL 300 MG ORAL CAPSULE one tablet by mouth every 6 hours CLINDAMYCIN HCL 300 MG ORAL CAPSULE 381975 CLINDAMYCIN HCL Inactive BACTRIM DS 800-160 MG ORAL TABLET 1 tab by mouth twice a day for 7 days 03/21 BACTRIM DS 800-160 MG ORAL TABLET 070460 TRIMETHOPRIM- SULFAMETHOXAZOLE Inactive GLIPIZIDE 10 MG ORAL TABLET One By Mouth Twice a Day for diabetes GLIPIZIDE 10 MG ORAL TABLET 742351 GLIPIZIDE Inactive LOSARTAN POTASSIUM 50 MG ORAL TABLET One By Mouth daily for blood pressure LOSARTAN POTASSIUM 50 MG ORAL TABLET 143279 LOSARTAN POTASSIUM Inactive OMEPRAZOLE 40 MG ORAL CAPSULE DELAYED RELEASE One By Mouth every morning for acid reflux OMEPRAZOLE 40 MG ORAL CAPSULE DELAYED RELEASE 988544 OMEPRAZOLE Inactive BACTRIM DS 800-160 MG ORAL TABLET 1 tab by mouth twice a day 2014 BACTRIM DS 800-160 MG ORAL TABLET 427695 TRIMETHOPRIM- SULFAMETHOXAZOLE Inactive GLIPIZIDE 10 MG ORAL TABLET take 2 tabs 2x/ day GLIPIZIDE 10 MG ORAL TABLET 873055 GLIPIZIDE Inactive NYSTATIN-TRIAMCINOLONE 182580-6.1 UNIT/GM-% EXTERNAL CREAM apply to affected area 4 times a day as needed NYSTATIN-TRIAMCINOLONE 304921-3.1 UNIT/GM-% EXTERNAL CREAM 5374088 NYSTATIN-TRIAMCINOLONE Inactive CITALOPRAM HYDROBROMIDE 20 MG ORAL TABLET take 1 tab By Mouth Every day X 2 wks then 1/2 tab By Mouth Every day X 2 weeks CITALOPRAM HYDROBROMIDE 20 MG ORAL TABLET 338132 CITALOPRAM HYDROBROMIDE Inactive CLOTRIMAZOLE 1 % EXTERNAL CREAM 5g per day per vagina for 7 days CLOTRIMAZOLE 1 % EXTERNAL CREAM 567905 CLOTRIMAZOLE Inactive FLUCONAZOLE 150 MG ORAL TABLET One By Mouth weekly for yeast infection x 3 weeks FLUCONAZOLE 150 MG ORAL TABLET 742741 FLUCONAZOLE Inactive METFORMIN HCL 1000 MG ORAL TABLET 1 by mouth twice a day for diabetes METFORMIN HCL 1000 MG ORAL TABLET 199339 METFORMIN HCL Inactive ONETOUCH ULTRA BLUE IN VITRO STRIP Use daily to check blood sugar ONETOUCH ULTRA BLUE IN VITRO STRIP GLUCOSE BLOOD Inactive EVISTA 60 MG ORAL TABLET One By Mouth daily for osteoporosis 2015 EVISTA 60 MG ORAL TABLET 1616300 RALOXIFENE HCL Inactive GLIPIZIDE-METFORMIN HCL 2.5-500 MG ORAL TABLET Take one Every Morning and two at night for diabetes GLIPIZIDE-METFORMIN HCL 2.5-500 MG ORAL TABLET 494860 GLIPIZIDE-METFORMIN HCL Inactive BYETTA 10 MCG PEN 10 MCG/0.04ML SUBCUTANEOUS SOLUTION PEN-INJECTOR One By Mouth Twice a Day for diabetes BYETTA 10 MCG PEN 10 MCG /0.04ML SUBCUTANEOUS SOLUTION PEN-INJECTOR EXENATIDE Inactive BD PEN NEEDLE MINI U/F 31G X 5 MM Use to Check Blood Sugar Once Daily BD PEN NEEDLE MINI U/F 31G X 5 MM INSULIN PEN NEEDLE Inactive AMOXICILLIN-POT CLAVULANATE 875-125 MG ORAL TABLET take 1 tab By Mouth Every 8 hrs for Urinary Tract Infection AMOXICILLIN-POT CLAVULANATE 88682306066 No Longer Active Angela Virgilio Pariani DO Active MACROBID 100 MG ORAL CAPSULE 1 tab By Mouth Twice a Day X 7 days for UTI 2017 NITROFURANTOIN MONOHYD MACRO 78786237878 No Longer Active Angela Virgilio Paridomitila DO Active KEFLEX 500 MG ORAL CAPSULE One By Mouth Twice a Day for 5 days for bladder infection CEPHALEXIN 60419027969 No Longer Active Elsie Mejia MD Active MACROBID 100 MG ORAL CAPSULE 1 by mouth twice a day for 7 days for bladder infection NITROFURANTOIN MONOHYD MACRO 45211086576 No Longer Active Elsie Mejia MD Active DOXYCYCLINE HYCLATE 100 MG ORAL TABLET one tablet twice daily for 7 days 2016 DOXYCYCLINE HYCLATE 86054158082 No Longer Active Pat Pond MD Active PROAIR HFA 108 (90 BASE) MCG/ACT INHALATION AEROSOL SOLUTION 2 puffs every 4 - 6 hours as needed ALBUTEROL SULFATE 84452696708 No Longer Active Elsie Mejia MD Active ROBITUSSIN DM 100-10 MG/5ML ORAL SYRUP 10 ml every 6 hrs as needed for cough DEXTROMETHORPHAN-GUAIFENESIN 12879831781 No Longer Active Elsie Mejia MD Active AMLODIPINE BESYLATE 5 MG ORAL TABLET 1 tab by mouth daily for blood pressure AMLODIPINE BESYLATE 03123511332 No Longer Active Angela Junior DO Active XIFAXAN 550 MG ORAL TABLET take 1 tab By Mouth Twice a Day 11/08 RIFAXIMIN 92283822202 No Longer Active Elsie Mejia MD Active BACLOFEN 10 MG ORAL TABLET take 1/2-1 tablet By Mouth Three Times a Day As Needed body aches BACLOFEN 33418614151 No Longer Active Angela Virgilio Junior DO Active LACTULOSE 10 GM/15ML ORAL SOLUTION take 15 ml By Mouth Every day LACTULOSE 83672316087 No Longer Active Angelaeliane Junior DO Active FERREX 150 150 MG ORAL CAPSULE take 1 tab By Mouth Every day 2017 POLYSACCHARIDE IRON COMPLEX 37396588259 No Longer Active Angela Virgilio Junior DO Active IRON TABLET 1 tab By Mouth Every day FERROUS SULFATE TABS 72042646184 No Longer Active Angela Virgilio Junior DO Active OMEPRAZOLE 20 MG ORAL CAPSULE DELAYED RELEASE take 1 tabs a day OMEPRAZOLE 10371525632 No Longer Active Angelaeliane Junior DO Active BENEFIBER ORAL POWDER As Needed constipation WHEAT DEXTRIN 53946692162 No Longer Active Angela Junior DO Active ASPIR-81 81 MG ORAL TABLET DELAYED RELEASE ASPIRIN 42669470505 No Longer Active Elsie Mejia MD Active FLUCONAZOLE 150 MG ORAL TABLET One By Mouth every other day for 3 doses for severe yeast infection FLUCONAZOLE 73410035719 No Longer Active Elsie Mejia MD Active FARXIGA 10 MG ORAL TABLET One By Mouth daily for diabetes DAPAGLIFLOZIN PROPANEDIOL 95829405911 No Longer Active Elsie Mejia MD Active HYDROCHLOROTHIAZIDE 25 MG ORAL TABLET 1/2 by mouth every day for blood pressure HYDROCHLOROTHIAZIDE [id number] No Longer Active Angela Junior DO Active CEPHALEXIN 500 MG ORAL CAPSULE One By Mouth Three Times a Day for skin infection CEPHALEXIN [id number] No Longer Active Elsie Mejia MD Active CIPRO 500 MG ORAL TABLET 1 by mouth twice a day CIPROFLOXACIN HCL 77887232593 No Longer Active Elsie Mejia MD Active CULTURELLE DIGESTIVE HEALTH ORAL CAPSULE 1 By Mouth twice (probiotic) during time of antibiotics LACTOBACILLUS-INULIN [id number] No Longer Active Elsie Mejia MD Active CICLOPIROX 8 % EXTERNAL SOLUTION Apply to affected nail every night for up to 6 months CICLOPIROX 21909234819 No Longer Active Elsie Mejia MD Active GABAPENTIN 300 MG ORAL CAPSULE take 1 tab By Mouth Every hs 03/13 GABAPENTIN 22742944235 No Longer Active Angela Virgilio Pariani DO Active CLINDAMYCIN HCL 300 MG ORAL CAPSULE one tablet by mouth every 6 hours CLINDAMYCIN HCL 07942771853 No Longer Active Elsie Mejia MD Active BACTRIM DS 800-160 MG ORAL TABLET 1 tab by mouth twice a day for 7 days 03/21 TRIMETHOPRIM-SULFAMETHOXAZOLE 08164242593 No Longer Active Mahendra Landis MD Active GLIPIZIDE 10 MG ORAL TABLET One By Mouth Twice a Day for diabetes GLIPIZIDE 93454868884 No Longer Active Elsie Mejia MD Active LOSARTAN POTASSIUM 50 MG ORAL TABLET One By Mouth daily for blood pressure LOSARTAN POTASSIUM 22590537097 No Longer Active Angela Junior DO Active OMEPRAZOLE 40 MG ORAL CAPSULE DELAYED RELEASE One By Mouth every morning for acid reflux OMEPRAZOLE 94672592887 No Longer Active Angela Virgilio Paridomitila DO Active BACTRIM DS 800-160 MG ORAL TABLET 1 tab by mouth twice a day 2014 TRIMETHOPRIM-SULFAMETHOXAZOLE 29938939884 No Longer Active Elsie Mejia MD Active GLIPIZIDE 10 MG ORAL TABLET take 2 tabs 2x/ day GLIPIZIDE 00119824236 No Longer Active Elsie Mejia MD Active NYSTATIN-TRIAMCINOLONE 369772-5.1 UNIT/GM-% EXTERNAL CREAM apply to affected area 4 times a day as needed NYSTATIN-TRIAMCINOLONE 02678579475 No Longer Active Elsie Mejia MD Active CITALOPRAM HYDROBROMIDE 20 MG ORAL TABLET take 1 tab By Mouth Every day X 2 wks then 1/2 tab By Mouth Every day X 2 weeks CITALOPRAM HYDROBROMIDE 70650332457 No Longer Active Elsie Mejia MD Active CLOTRIMAZOLE 1 % EXTERNAL CREAM 5g per day per vagina for 7 days CLOTRIMAZOLE 07347948887 No Longer Active Elsie Mejia MD Active FLUCONAZOLE 150 MG ORAL TABLET One By Mouth weekly for yeast infection x 3 weeks FLUCONAZOLE 53646669310 No Longer Active Elsie Mejia MD Active METFORMIN HCL 1000 MG ORAL TABLET 1 by mouth twice a day for diabetes METFORMIN HCL 59737158776 No Longer Active Angela Junior DO Active ONETOUCH ULTRA BLUE IN VITRO STRIP Use daily to check blood sugar GLUCOSE BLOOD 57293556085 No Longer Active Elsie Mejia MD Active TRAZODONE HCL 50 MG ORAL TABLET 1 by mouth nightly at bedtime for sleep 03/15 TRAZODONE HCL 96254981622 No Longer Active Elsie Mejia MD Active EVISTA 60 MG ORAL TABLET One By Mouth daily for osteoporosis 2015 RALOXIFENE HCL 81225824045 No Longer Active Angela Junior DO Active GLIPIZIDE-METFORMIN HCL 2.5-500 MG ORAL TABLET Take one Every Morning and two at night for diabetes GLIPIZIDE-METFORMIN HCL 21976342225 No Longer Active Elsie Mejia MD Active NORTRIPTYLINE HCL 25 MG ORAL CAPSULE One By Mouth every evening for sleep NORTRIPTYLINE HCL 84395351412 No Longer Active Elsie Mejia MD Active BYETTA 10 MCG PEN 10 MCG/0.04ML SUBCUTANEOUS SOLUTION PEN-INJECTOR One By Mouth Twice a Day for diabetes EXENATIDE 39280128033 No Longer Active Elsie Mejia MD Active BD PEN NEEDLE MINI U/F 31G X 5 MM Use to Check Blood Sugar Once Daily INSULIN PEN NEEDLE [id number] No Longer Active Elsie Mejia MD Active Advance Directives Directive Description Start Date DISCUSSED - NO DECISION MADE Immunizations Vaccine Administration Date Value Standard Description influenza immunization (Flu Vax) has been administered given influenza virus vaccine, unspecified formulation influenza immunization (Flu Vax) has been administered given influenza virus vaccine, unspecified formulation PEDIATRIC PNEUMOCOCCAL VACCINE ([id number]) #1 given pneumococcal conjugate vaccine, 13 valent influenza immunization (Flu Vax) has been administered given influenza virus vaccine, unspecified formulation influenza immunization (Flu Vax) has been administered given influenza virus vaccine, unspecified formulation hepatitis B vaccine #3 given hepatitis B vaccine, unspecified formulation dT (Diphtheria and Tetanus) immunization for children, #1 given Td(adult) unspecified formulation hepatitis B vaccine #2 given given hepatitis B vaccine, unspecified formulation hepatitis B vaccine #1 given given hepatitis B vaccine, unspecified formulation influenza immunization (Flu Vax) has been administered given influenza virus vaccine, unspecified formulation pneumococcal immunization administered given pneumococcal polysaccharide vaccine, 23 valent varicella shingles vaccine given varicella virus vaccine Vital Signs Date Name Value Unit Range Description blood pressure, diastolic 72 mm[Hg] BP barrera blood pressure, systolic 130 mm[Hg] BP sys height E&M 61 [in_us] Bdy height pulse rate E&M 66 /min Heart rate respiratory rate E&M 18 /min Resp rate temperature E&M 98.4 [degF] Body temperature weight E&M 153.80 [lb_av] Weight Measured blood pressure, diastolic 66 mm[Hg] BP barrera blood pressure, systolic 127 mm[Hg] BP sys height E&M 61 [in_us] Bdy height pulse rate E&M 58 /min Heart rate respiratory rate E&M 18 /min Resp rate temperature E&M 98.4 [degF] Body temperature weight E&M 148.80 [lb_av] Weight Measured blood pressure, diastolic, second observation 79 mm[Hg] BP barrera blood pressure, diastolic, third observation 70 mm[Hg] BP barrera blood pressure, diastolic 79 mm[Hg] BP barrera blood pressure, systolic, second observation 147 mm[Hg] BP sys blood pressure, systolic, third observation 152 mm[Hg] BP sys blood pressure, systolic 147 mm[Hg] BP sys height E&M 61 [in_us] Bdy height pulse rate E&M 70 /min Heart rate respiratory rate E&M 18 /min Resp rate temperature E&M 98.3 [degF] Body temperature weight E&M 151 [lb_av] Weight Measured blood pressure, diastolic 79 mm[Hg] BP barrera blood pressure, systolic 133 mm[Hg] BP sys height E&M 61 [in_us] Bdy height pulse rate E&M 64 /min Heart rate respiratory rate E&M 18 /min Resp rate temperature E&M 98.4 [degF] Body temperature weight E&M 149.80 [lb_av] Weight Measured blood pressure, diastolic 71 mm[Hg] BP barrera blood pressure, systolic 153 mm[Hg] BP sys height E&M 61 [in_us] Bdy height pulse rate E&M 75 /min Heart rate respiratory rate E&M 19 /min Resp rate temperature E&M 99.2 [degF] Body temperature weight E&M 145 [lb_av] Weight Measured blood pressure, diastolic 66 mm[Hg] BP barrera blood pressure, systolic 169 mm[Hg] BP sys height E&M 61 [in_us] Bdy height pulse rate E&M 70 /min Heart rate respiratory rate E&M 17 /min Resp rate temperature E&M 98.6 [degF] Body temperature weight E&M 145.80 [lb_av] Weight Measured blood pressure, diastolic, second observation 72 mm[Hg] BP barrera blood pressure, diastolic 72 mm[Hg] BP barrera blood pressure, systolic, second observation 153 mm[Hg] BP sys blood pressure, systolic 153 mm[Hg] BP sys height E&M 61 [in_us] Bdy height pulse rate E&M 98 /min Heart rate respiratory rate E&M 18 /min Resp rate temperature E&M 98.4 [degF] Body temperature weight E&M 145.80 [lb_av] Weight Measured blood pressure, diastolic 75 mm[Hg] BP barrera blood pressure, systolic 153 mm[Hg] BP sys height E&M 61 [in_us] Bdy height pulse rate E&M 62 /min Heart rate respiratory rate E&M 16 /min Resp rate temperature E&M 98.5 [degF] Body temperature weight E&M 144.20 [lb_av] Weight Measured blood pressure, diastolic 72 mm[Hg] BP barrera blood pressure, systolic 157 mm[Hg] BP sys height E&M 61 [in_us] Bdy height pulse rate E&M 62 /min Heart rate respiratory rate E&M 18 /min Resp rate temperature E&M 98.2 [degF] Body temperature weight E&M 145 [lb_av] Weight Measured blood pressure, diastolic 81 mm[Hg] BP barrera blood pressure, systolic 159 mm[Hg] BP sys height E&M 61 [in_us] Bdy height pulse rate E&M 67 /min Heart rate respiratory rate E&M 19 /min Resp rate temperature E&M 98.2 [degF] Body temperature weight E&M 145.60 [lb_av] Weight Measured blood pressure, diastolic 76 mm[Hg] BP barrera blood pressure, systolic 151 mm[Hg] BP sys height E&M 61 [in_us] Bdy height pulse rate E&M 59 /min Heart rate respiratory rate E&M 18 /min Resp rate temperature E&M 98.2 [degF] Body temperature weight E&M 145.20 [lb_av] Weight Measured blood pressure, diastolic 58 mm[Hg] BP barrera blood pressure, systolic 99 mm[Hg] BP sys height E&M 61 [in_us] Bdy height pulse rate E&M 62 /min Heart rate respiratory rate E&M 19 /min Resp rate temperature E&M 98.2 [degF] Body temperature weight E&M 138 [lb_av] Weight Measured Diagnostic Results Date Name Value Unit Range Description Lab Report: Urinalysis, Complete, Microscopic Examination, Basic Metabol ... - Urinalysis epithelial cells, urine None seen /[LPF] 0 - 10 Office Visit: Adult Followup Sandi - Urinalysis pH, urine, semiquantitative 5.0 Lab Report: CBC With Differential/Platelet, Comp. Metabolic Panel (14), ... - Hematology lymphocyte count, blood, automated 1.3 X10E3/UL 10*3/mm3 0.7- 3.1 Office Visit: Adult Followup Sandi - Urinalysis bilirubin, urine negative Lab Report: CBC With Differential/Platelet, Comp. Metabolic Panel (14), ... - Chemistry urea nitrogen, blood 8 mg/dL 8-27 ferritin, serum 19 ng/mL 15-150 creatinine, serum 0.72 mg/dL 0.57-1.00 lipase, serum 34 U/L [iU]/L 0-59 chloride, serum 103 mmol/L 96-106 Lab Report: CBC With Differential/Platelet, Comp. Metabolic Panel (14), ... - Hematology mean corpuscular volume, RBC 91 fL 79-97 Lab Report: CBC With Differential/Platelet, Comp. Metabolic Panel (14), ... - Chemistry triglyceride, serum, fasting 72 mg/dL 0-149 Lab Report: CBC With Differential/Platelet, Comp. Metabolic Panel (14), ... - Hematology erythrocyte (RBC) count 4.02 X10E6/UL 10*6/mm3 3.77-5.28 Lab Report: CBC With Differential/Platelet, Comp. Metabolic Panel (14), ... - Chemistry Estimated Glomerular Filtration Rate (calc) 85 mL/min/1.73m2 > 59 Office Visit: Adult Followup Sandi - Urinalysis appearance, urine clear Lab Report: CBC With Differential/Platelet, Comp. Metabolic Panel (14), ... - Hematology platelet count 119 X10E3/UL 10*3/mm3 320-265 1842/12/29 red blood cell distribution width 14.6 % 12.3-15.4 Lab Report: CBC With Differential/Platelet, Comp. Metabolic Panel (14), ... - Chemistry protein, total, serum 6.6 g/dL 6.0-8.5 HDL cholesterol, serum 64 mg/dL >39 Lab Report: Urinalysis, Complete, Microscopic Examination, Basic Metabol ... - Urinalysis mucus on urinalysis Present Not Estab. Lab Report: Urinalysis, Complete, Microscopic Examination, Basic Metabol ... - Chemistry specific gravity, body fluid 1.018 1.005-1.030 Lab Report: CBC With Differential/Platelet, Comp. Metabolic Panel (14), ... - Hematology eosinophils as percent of blood leukocytes 6 % Not Estab. Lab Report: CBC With Differential/Platelet, Comp. Metabolic Panel (14), ... - Chemistry albumin/globulin ratio, serum 1.4 1.2-2.2 Office Visit: Adult Followup [facility] - Urinalysis glucose, urine, semiquantitative negative Lab Report: CBC With Differential/Platelet, Comp. Metabolic Panel (14), ... - Chemistry Absolute Neutrophils 3.0 X10E3/UL 10*3/uL 1.4-7.0 Lab Report: TSH+Free T4, CBC With Differential/Platelet, Comp. Metabolic ... - Chemistry microalbumin/creatinine ratio, urine 7.2 MG/G CREAT ug/mg 0.0- 30.0 Lab Report: CBC With Differential/Platelet, Comp. Metabolic Panel (14), ... - Hematology basophil count, absolute 0.0 x10E3/uL 0.0-0.2 Lab Report: Fe+TIBC+Blake+B12+Folic, Hematopath Consultation, Smear, Retic ... - Chemistry iron saturation percent, serum 12 % 15-55 Lab Report: CBC With Differential/Platelet, Comp. Metabolic Panel (14), ... - Chemistry alanine aminotransferase (SGPT), serum 39 U/L 0-32 LDL cholesterol, serum 50 mg/dL 0-99 Lab Report: CBC With Differential/Platelet, Comp. Metabolic Panel (14), ... - Hematology monocytes as percent of blood leukocytes 13 % Not Estab. Office Visit: Adult Followup [facility] - Urinalysis nitrite, urine, semiquantitative negative Lab Report: Urine Culture, Routine, Result - Urinalysis urine culture Escherichia coli Lab Report: CBC With Differential/Platelet, Comp. Metabolic Panel (14), ... - Urinalysis casts, urine Present /[LPF] None seen Lab Report: CBC With Differential/Platelet, Comp. Metabolic Panel (14), ... - Chemistry cholesterol, serum 128 mg/dL 100-199 Lab Report: Urinalysis, Complete, Microscopic Examination, Basic Metabol ... - Basic Occult Blood, urine Negative Negative Lab Report: CBC With Differential/Platelet, Comp. Metabolic Panel (14), ... - Hematology mean corpuscular hemoglobin concentration, RBC 33.8 G/DL % 31.5- 35.7 Office Visit: Adult Followup Sandi - Urinalysis leukocyte esterase, urine, by dipstick negative Lab Report: CBC With Differential/Platelet, Comp. Metabolic Panel (14), ... - Hematology hemoglobin, blood 12.4 g/dL 11.1-15.9 Lab Report: Urinalysis, Complete, Microscopic Examination, Basic Metabol ... - Urinalysis urinalysis, microscopic examination MICRON Lab Report: CBC With Differential/Platelet, Comp. Metabolic Panel (14), ... - Hematology leukocyte count, blood 5.3 X10E3/UL 10*3/mm3 3.4-10.8 Lab Report: Fe+TIBC+Blake+B12+Folic, Hematopath Consultation, Smear, Retic ... - Chemistry B-12, serum 480 pg/mL 211-946 Office Visit: Adult Followup Sandi - Urinalysis protein, urine, semiquantitative (dipstick) negative Lab Report: CBC With Differential/Platelet, Comp. Metabolic Panel (14), ... - Hematology hematocrit, blood 36.7 % 34.0-46.6 Lab Report: CBC With Differential/Platelet, Comp. Metabolic Panel (14), ... - Chemistry globulin, serum 2.8 1.5-4.5 Lab Report: Urinalysis, Complete, Microscopic Examination, Basic Metabol ... - Urinalysis bacteria, urine microscopy None seen None seen/Few Lab Report: CBC With Differential/Platelet, Comp. Metabolic Panel (14), ... - Chemistry vitamin D 25-hydroxy, serum 42.2 ng/mL 30.0-100.0 Lab Report: Hemoglobin A1c, TSH Rfx on Abnormal to Free T4 - Chemistry thyroid stimulating hormone, serum 1.860 u[iU]/mL 0.450-4.500 Office Visit: Acute Visit Monalisa Pond - Serology influenza virus A antigen negative Lab Report: CBC With Differential/Platelet, Comp. Metabolic Panel (14), ... - Chemistry albumin, serum 3.8 g/dL 3.5-4.8 Lab Report: Fe+TIBC+Blake+B12+Folic, Hematopath Consultation, Smear, Retic ... - Chemistry reticulocyte count, corrected 1.8 % 0.6-2.6 Lab Report: CBC With Differential/Platelet, Comp. Metabolic Panel (14), ... - Chemistry very low density lipoproteins 14 mg/dL 5-40 Internal Correspondence: Pre-Visit Planning - Other List of providers caring for patient Brice Acosta Office Visit: Adult Followup Sandi - Urinalysis urobilinogen, urine, semiquantitative (dipstick) 1 Lab Report: CBC With Differential/Platelet, Comp. Metabolic Panel (14), ... - Hematology basophils as percent of blood leukocytes 1 % Not Estab. Lab Report: CBC With Differential/Platelet, Comp. Metabolic Panel (14), ... - Chemistry calcium, serum 9.4 mg/dL 8.7-10.3 Lab Report: TSH+Free T4, CBC With Differential/Platelet, Comp. Metabolic ... - Chemistry thyroxine, serum, free 1.21 ng/dL 0.82-1.77 Lab Report: TSH+Free T4, CBC With Differential/Platelet, Comp. Metabolic ... - Urinalysis microalbumin/total urine volume 8.8 mg/L 0.0-17.0 Lab Report: CBC With Differential/Platelet, Comp. Metabolic Panel (14), ... - Hematology monocyte count, blood, automated 0.7 X10E3/UL 10*3/uL 0.1-0.9 Internal Correspondence: Pre-Visit Planning - [facility] [employer] team member #1, name Nenita Alvarez Lab Report: CBC With Differential/Platelet, Comp. Metabolic Panel (14), ... - Chemistry urea nitrogen/creatinine ratio, serum 11-07 immature granulocytes, percentage of total cells, blood 0 % Not Estab. Lab Report: Fe+TIBC+Blake+B12+Folic, Hematopath Consultation, Smear, Retic ... - Chemistry iron, serum 47 ug/dL 27-139 Lab Report: CBC With Differential/Platelet, Comp. Metabolic Panel (14), ... - Genetics/fertility eGFR if 98 mL/min/1.73m2 >59 Lab Report: Fe+TIBC+Blake+B12+Folic, Hematopath Consultation, Smear, Retic ... - Chemistry iron binding capacity, total 394 ug/dL 250-450 Lab Report: Urinalysis, Complete, Microscopic Examination, Basic Metabol ... - Urinalysis WBC urine on microscopy 0-5 /hpf {Cells}/[HPF] 0 - 5 Lab Report: CBC With Differential/Platelet, Comp. Metabolic Panel (14), ... - Hematology lymphocytes as percent of blood leukocytes 24 % Not Estab. Lab Report: Urinalysis, Complete, Microscopic Examination, Basic Metabol ... - Chemistry RBC, Urine 0-2 /hpf /[HPF] 0 - 2 Lab Report: CBC With Differential/Platelet, Comp. Metabolic Panel (14), ... - Chemistry carbon dioxide, venous blood 20 mmol/L 18- sodium, serum 144 mmol/L 134-144 Lab Report: CBC With Differential/Platelet, Comp. Metabolic Panel (14), ... - Hematology erythrocyte sedimentation rate 19 mm/h 0-40 Lab Report: Hemoglobin A1c, TSH Rfx on Abnormal to Free T4 - Chemistry hemoglobin A1C, blood, as % of total hemoglobin 8.7 % 4.8-5.6 Office Visit: Adult Followup [address] - Chemistry blood glucose, fasting 163 mg/dL Lab Report: Fe+TIBC+Blake+B12+Folic, Hematopath Consultation, Smear, Retic ... - Chemistry iron binding capacity, unsaturated 347 ug/dL 118-369 Lab Report: CBC With Differential/Platelet, Comp. Metabolic Panel (14), ... - Chemistry alkaline phosphatase, serum 154 U/L 39-117 Office Visit: Adult Followup [facility] - Urinalysis ketones, urine, by test strip negative Lab Report: CBC With Differential/Platelet, Comp. Metabolic Panel (14), ... - Hematology Eosinophil Absolute Count 0.3 X10E3/UL 10*3/uL 0.0-0.4 Lab Report: Fe+TIBC+Blake+B12+Folic, Hematopath Consultation, Smear, Retic ... - Chemistry folate, serum 16.2 ng/mL >3.0 Office Visit: Adult Followup Wilbur Junior - Urinalysis specific gravity, urine 1.015 Lab Report: CBC With Differential/Platelet, Comp. Metabolic Panel (14), ... - Chemistry ammonia, plasma 90 UG/DL umol/L 19-87 Lab Report: CBC With Differential/Platelet, Comp. Metabolic Panel (14), ... - Hematology mean corpuscular hemoglobin, RBC 30.8 pg 26.6-33.0 Lab Report: TSH+Free T4, CBC With Differential/Platelet, Comp. Metabolic ... - Chemistry creatinine, random, urine 123.0 mg/dL 15.0-278.0 Lab Report: CBC With Differential/Platelet, Comp. Metabolic Panel (14), ... - Chemistry creatine kinase, serum 73 U/L 24-173 bilirubin, serum, total 1.2 mg/dL 0.0-1.2 Lab Report: CBC With Differential/Platelet, Comp. Metabolic Panel (14), ... - Hematology neutrophils as percent of blood leukocytes 56 % Not Estab. Lab Report: Urinalysis, Complete, Microscopic Examination, Basic Metabol ... - Microbiology microscopic exam See below: Lab Report: Urinalysis, Complete, Microscopic Examination, Basic Metabol ... - Chemistry nitrate, urine Negative Negative Office Visit: Adult Followup Wilbur Junior - Urinalysis blood in urine (hemoglobin) by dipstick negative Lab Report: CBC With Differential/Platelet, Comp. Metabolic Panel (14), ... - Chemistry potassium, serum 3.8 mmol/L 3.5-5.2 blood glucose, random 119 mg/dL 65-99 Office Visit: Acute Visit Monalisa Salty - Lab influenza B virus antigen negative Lab Report: CBC With Differential/Platelet, Comp. Metabolic Panel (14), ... - Chemistry aspartate aminotransferase (SGOT), serum 73 U/L 0-40 Office Visit: Adult Followup Wilbur Junior - Urinalysis urine color yellow Lab Report: CBC With Differential/Platelet, Comp. Metabolic Panel (14), ... - Urinalysis cast type, urinalysis Hyaline casts N/A Encounters Date Encounter Provider Code Facility 14:09:23 CDT Est Patient Detailed - [id number] Angela Junior DO [facility]-[address]39 [facility] 18:32:26 CDT Ofc Vst, Est Level V Angela Junior DO [facility]- [address]257 [facility] 13:54:47 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 Est Patient Detailed - [id number] Angela Junior DO [facility]-47544 [facility] 22:43:35 [employer] 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 Est Patient Detailed - [id number] Elsie Mjeia MD [facility]- [address]14 [facility] 22:48:43 [employer] 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 Est Patient Detailed - [id number] Elsie Mejia MD [facility]- 38291 [facility] 11:34:21 [employer] 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 Est Patient Detailed - [id number] Pat Pond MD [facility]- 29622 [facility] 06:22:23 [employer] SET 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 Est Patient Detailed - 95715 Elsie Mejia MD [facility]- 91950 [facility] 14:23:11 CDT Ofc Vst, Est Level V Angela Junior DO [facility]- 26356 [facility] 13:37:32 CDT Est Patient Exp Problem - [id number] Pat Pond MD [facility]-01579 [facility] 23:43:22 CDT Est Patient Detailed - [id number] Angela Junior DO [facility]-36592 [facility] 00:16:24 CDT Est Patient Detailed - [id number] Angela Junior [facility]-77669 [facility] 15:43:14 CDT Est Patient Detailed - [id number] Angela Junior DO CPT-83266 [facility] 12:11:14 CDT Est Patient Detailed - 64634 Angela Junior DO CPT-95816 [facility] 23:49:22 CDT Est Patient Detailed - [id number] Angela Robertsani DO CPT-37891 [facility] 21:24:58 [employer] 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 Est Patient Detailed - [id number] Angela Robertsani DO CPT-20630 [facility] 21:59:22 [employer] 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 Est Patient Detailed - 63657 Angela Junior DO CPT-47711 [facility] 19:19:29 [employer] 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 Est Patient Detailed - [id number] Angela Junior DO CPT-76444 [facility] 20:03:07 [employer] 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 Ofc Vst, Est Level IV Angela Junior DO CPT- 99376 [facility] 16:06:39 CDT Est Patient Detailed - [id number] Angela Junior DO CPT-68920 [facility] 19:14:01 CDT New Patient Comprehensive - [id number] Angela Junior DO CPT-75789 [facility] 10:32:33 CDT Est Patient Detailed - 72460 Angela Junior DO CPT-10747 [facility] 22:09:58 CDT Est Patient Exp Problem - 05687 Elsie Mejia MD CPT -99054 [facility] 09:50:02 CDT Est Patient Detailed - 69260 Elsie Mejia MD CPT- 24663 [facility] 16:41:34 CDT Est Patient Exp Problem - 99855 Brice Bruner MD CPT-16576 [facility] 16:41:36 CDT Est Patient Exp Problem - 57121 Brice Bruner MD CPT-66345 [facility] 13:48:02 CDT Est Patient Detailed - 05110 Elsie Mejia MD CPT- 96227 [facility] 16:08:28 CDT Est Patient Detailed - 78097 Elsie Mejia MD CPT- 50206 [facility] 00:40:45 [employer] 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 Est Patient Exp Problem - 69976 Pat Pond MD CPT-38995 [facility] 12:58:57 [employer] SET 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 Est Patient Exp Problem - 14489 Pat Pond MD CPT-43169 [facility] 15:01:25 [employer] SET 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 Est Patient Exp Problem - 63236 Elsie Mejia MD CPT -61015 [facility] 22:16:02 [employer] SET 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 Est Patient Detailed - 56870 Elsie Mejia MD CPT- 53606 [facility] 11:47:09 [employer] 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 Est Patient Exp Problem - 70159 Elaina Fisher D.O. CPT-86779 [facility] 23:06:44 CDT Est Patient Exp Problem - 18475 Elsie Mejia MD CPT -11167 [facility] 15:08:29 CDT Est Patient Exp Problem - 56886 Elsie Mejia MD CPT -47753 [facility] 18:30:12 CDT Ofc Vst, Est Level III Mahendra Landis MD CPT-53784 [facility] 08:36:28 CDT Est Patient Exp Problem - 47790 Elsie Mejia MD CPT -57976 [facility] 15:11:18 CDT Est Patient Exp Problem - 62079 Blanca Morales MD CPT -23752 [facility] 15:03:21 CDT Est Patient Exp Problem - 84433 Elsie Mejia MD CPT -11088 [facility] [facility] 09:53:13 CDT Est Patient Exp Problem - [id number] Jc Mo DO CPT-21452 [facility] 07:46:51 CDT Est Patient Exp Problem - 42377 Elsie Mejia MD CPT -21954 [facility] 09:06:40 [employer] 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 Est Patient Detailed - 85700 Fabian Allison MD CPT- 47391 [facility] 10:16:16 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 Est Patient Detailed - [id number] Elsie Mejia MD CPT- 47220 [facility] 21:51:07 CDT Est Patient Detailed - 13697 Elsie Mejia MD CPT- 59856 [facility] 09:06:36 CDT Est Patient Nurse - Only Visit - [id number] 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 CPT-63809 [facility] 19:34:33 [employer] 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 Est Patient Exp Problem - 43490 Elsie Mejia MD CPT -33430 [facility] 08:45:48 [employer] 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 Est Patient Nurse - Only Visit - [id number] Rose Marie Shital [place] GENERAL PRACTITIONER CPT-66060 [facility] 21:38:53 CDT Est Patient Detailed - [id number] Elsie Mejia MD CPT- 39034 [facility] 22:28:57 CDT Ofc Vst, Est Level IV Elsie Mejia MD CPT-57432 [facility] Procedures Code Procedure Name Date Entry Date Standard Description CPT-89700 Urinalysis - Dip only - In House 13:54:41 [employer] 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 CPT-78481 INFLUENZA VACCINE QUADRIVALENT 3 YRS PLUS IM 12:19:09 [employer] 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 CPT-05333 Urinalysis - Dip only - In House 11:50:50 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 CPT-69696 Rapid Flu - In House 15:39:38 [employer] 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 CPT-69423 EKG - Interpretation & Report Only 12:51:49 CDT CPT-06955 EKG - Tracing Only 12:51:48 CDT CPT-51242 INFLUENZA VACCINE QUADRIVALENT 3 YRS PLUS IM 11:10:35 CDT CPT-01541 Admin of Vaccine - Injection - 1 11:10:35 CDT CPT-52524 Glucose Stick 11:20:23 [employer] 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 CPT-59606 Glucose Stick 16:06:39 CDT CPT-91438 Prevnar (PCV13) IM 10:32:35 CDT CPT-HE001 Health Education/Supportive Counseling 12:54:09 CDT CPT-75289 TD - Tetanus & Diptheria Toxoids 12:40:28 CDT CPT-32063 Influenza - Adult - Injection 11:47:17 [employer] 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 CPT-36660 EKG - Interpretation & Report Only 15:11:18 CDT CPT-43184 Admin of Vaccine - Injection - 1 10:16:46 [employer] 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 CPT-33940 Influenza - Adult - Injection 10:16:46 [employer] 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 CPT-51393 Urinalysis - Dip only - In House 09:06:40 [employer] 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 CPT-95451 Hepatitis B - Adult 08:45:48 [employer] 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 CPT-52009 Admin of Vaccine - Injection - 1 08:45:48 [employer] 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 CPT-10888 Hepatitis B - Adult 09:06:36 CDT CPT-65735 Admin of Vaccine - Injection - 1 09:06:36 CDT CPT-05501 Influenza - Adult - Injection 10:19:53 CDT CPT-39321 Hepatitis B - Adult 10:19:53 CDT
== END | disposition home or self-care (01) ==
LOC: OR 07:27
PROVIDERS: ATTEND Internal Medicine Gastroenterology
PROC: 0DB68ZZ Excision of Stomach, Via Natural or Artificial Opening Endoscopic (ICD-10-PCS; principal; 2018-03-04 09:10)
DX: K74.60 Unspecified cirrhosis of liver (principal); I85.10 Secondary esophageal varices without bleeding; K29.70 Gastritis, unspecified, without bleeding; Z80.0 Family history of malignant neoplasm of digestive organs; K25.9 Gastric ulcer, unspecified as acute or chronic, without hemorrhage or perforation; I86.4 Gastric varices; K29.80 Duodenitis without bleeding; K44.9 Diaphragmatic hernia without obstruction or gangrene; E11.9 Type 2 diabetes mellitus without complications; I25.10 Atherosclerotic heart disease of native coronary artery without angina pectoris; I10 Essential (primary) hypertension; E78.5 Hyperlipidemia, unspecified; Z88.1 Allergy status to other antibiotic agents; Z01.810 Encounter for preprocedural cardiovascular examination; Z79.84 Long term (current) use of oral hypoglycemic drugs; Z79.4 Long term (current) use of insulin
CPT/HCPCS: 36415; 43239; 82948; 93005; J2001; J2250

== ENCOUNTER → 2018-04-10 | Outpatient (CLI) | payer BC, MEDICARE ==
[~2018-04-10] MED LIST changes: -INSULIN REGULAR, HUMAN 100 UNIT/1 ML 3ML VIAL ONE; -LIDOCAINE HCL 2% LOCAL INJ 5 ML SDV VIAL INJ ONE; -MIDAZOLAM HCL 2 MG/2 ML VIAL ONE; -PROPOFOL IV EMULSION 10 MG/ML 20 ML VIAL ONE
--- NOTE | 2018-04-10 13:10 | Diagnostic Imaging Report ---
Liver ultrasound, 04/10/2018 Clinical history: Cirrhosis. Clinical concern for splenic vein thrombosis. Comparison: None Technique: Matta scale, color Doppler and spectral Doppler ultrasound waveform analysis of the liver, liver vasculature and portal venous system. Findings: Right liver span is 11.7 cm. Mildly echogenic liver with a nodular margin. Portal system: Portal vein: Diameter: 1 cm. Hepatopedal flow with monophasic waveform. Peak systolic velocity 15.6 cm/s. Right portal vein: Patent, monophasic waveform. 15.6 cm/s Left portal vein: Patent, monophasic waveform with mild phasicity. 18.9 cm/s SMV and splenic confluence: Monophasic, waveform with mild phasicity. 15.9 cm/s. Splenic vein: Small, but patent throughout its length. Monophasic waveform from the origin to the confluence with velocities between 6.3 and 15.9 cm/s Hepatic arterial tree: Proper hepatic artery: 71 cm/s Right hepatic artery: 48 m/s Left hepatic artery: 46 cm/s Hepatic veins: Right: Patent, regular, though dampened, biphasic waveform with peak systolic velocity of 12.8 cm/s. Middle: Patent, regular, though dampened, triphasic waveform with peak systolic velocity of 14.7 cm/s. Left: Patent, regular, though dampened, biphasic waveform with peak systolic velocity of 12.2 cm/s. Impression: 1. The splenic vein and portal system are patent and with normal flow directions. 2. Hepatic veins are patent. Waveforms are altered in keeping with cirrhosis. 3. Small liver with a nodular margin consistent with cirrhosis. This report was generated with voice-recognition technology. Errors in clamp remover can occur. Please interpret accordingly and contact a radiologist if there are any questions regarding the report. Signed by: Dr. Jm Hilton M.D. on 04/10/2018 1:07 PM
== END ==
LOC: US 09:05
PROVIDERS: ATTEND Internal Medicine Gastroenterology
DX: K74.60 Unspecified cirrhosis of liver (principal)
CPT/HCPCS: 93975

== ENCOUNTER → 2018-10-14 | Day surgery (SDC) | payer BC, MEDICARE ==
[2018-10-13 10:30] LABS: BASOPHILS % 0.9 % (0.0-1.0); EOSINOPHILS # (AUTO) 0.2 (0.0-0.4); EOSINOPHILS % 5.1 % (0.0-6.0); HEMATOCRIT 35.2 % (34.2-44.1); LYMPHOCYTES # (AUTO) 0.8 (1.0-3.2); LYMPHOCYTES % 22.3 % (18.0-39.1); MEAN CORPUSCULAR HEMOGLOBIN 31.5 pg (28-32); MEAN CORPUSCULAR HGB CONC 34.1 g/dL (31-35); MEAN CORPUSCULAR VOLUME 92.4 fL (81-99); MONOCYTES # (AUTO) 0.5 (0.2-0.8); MONOCYTES % 15.8 % (4.4-11.3); NEUTROPHILS # (AUTO) 1.9 (2.1-6.9); NEUTROPHILS % 55.6 % (38.7-80.0); PLATELET COUNT 108 x10e3/uL (140-360); RED BLOOD COUNT 3.81 x10e6/uL (3.6-5.1); RED CELL DISTRIBUTION WIDTH 13.6 % (11.7-14.4)
[2018-10-13 10:42] LABS: INR 1.12; PROTHROMBIN TIME 15.4 seconds (11.9-14.5)
[2018-10-13 10:43] LABS: PARTIAL THROMBOPLASTIN TIME 33.4 seconds (23.8-35.5)
[2018-10-13 10:49] LABS: ALBUMIN 3.3 g/dL (3.5-5.0); ALBUMIN/GLOBULIN RATIO 0.9 (0.8-2.0); CREATININE, SERUM 0.92 mg/dL (0.57-1.11)
[~2018-10-14] MED LIST changes: +FENTANYL CITRATE/PF 100MCG/2 ML INJ ONE; +MIDAZOLAM HCL 2 MG/2 ML VIAL ONE; +PROPOFOL IV EMULSION 10 MG/ML 50 ML VIAL ONE; +XIFAXAN550 MG PO
--- OUTSIDE RECORDS SUMMARY | 2018-10-14 08:41 | XMS REPORT ---
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 Allergies, Adverse Reactions, Alerts This patient has no known allergies or adverse reactions. Medications This patient has no known medications. Results Test Description Test Time Test Comments Text Results Atomic Results Result Comments US ABDOMEN DUPLEX DOPPLER COMP [place] [address] Patient Name: NOVA VILLAFANA MR #: [id number] : 1945 Age/Sex: 72/F Req #: [id number] Adm Physician: Ordered by: FÉLIX PAIGE MD Report #: [id number] Location: US Room/Bed: Procedure: [id number] US/US ABDOMEN DUPLEX DOPPLER COMP Exam Date: 04/10/18 Exam Time: 928 REPORT STATUS: Signed Liver ultrasound, 04/10/2018 Clinical history: Cirrhosis. Clinical concern for splenic vein thrombosis. Comparison: None Technique: Matta scale, color Doppler and spectral Doppler ultrasound waveform analysis of the liver, liver vasculature and portal venous system. Findings: Right liver span is 11.7 cm. Mildly echogenic liver with a nodular margin. Portal system: Portal vein: Diameter: 1 cm. Hepatopedal flow with monophasic waveform. Peak systolic velocity 15.6 cm/s. Right portal vein: Patent, monophasic waveform. 15.6 cm/s Left portal vein: Patent, monophasic waveform with mild phasicity. 18.9 cm/s SMV and splenic confluence: Monophasic, waveform with mild phasicity. 15.9 cm/s. Splenic vein: Small, but patent throughout its length. Monophasic waveform from the origin to the confluence w ith velocities between 6.3 and 15.9 cm/s Hepatic arterial tree: Proper hepatic artery: 71 cm/s Right hepatic artery: 48 m/s Left hepatic artery: 46 cm/s Hepatic veins: Right: Patent, regular, though dampened, biphasic waveform with peak systolic velocity of 12.8 cm/s. Middle: Patent, regular, though dampened, triphasic waveform with peak systolic velocity of 14.7 cm/s. Left: Patent, regular, though dampened, biphasic waveform with peak systolic velocity of 12.2 cm/s. Impression: 1. The splenic vein and portal system are patent and with normal flow directions. 2. Hepatic veins are patent. Waveforms are altered in keeping with cirrhosis. 3. Small liver with a nodular margin consistent with cirrhosis. This report was generated with voice-recognition technology. Errors in obstetrics gyn can occur. Please interpret accordingly and contact a radiologist if there are any questions regarding the report. Signed by: Dr. Avni Hilton M.D. on 04/10/2018 1:07 PM Dictated By: AVNI HILTON MD [id number] Transcribed By: KETTY on 04/10/18 1300 COPY TO: FÉLIX PAIGE MD
--- OUTSIDE RECORDS SUMMARY | 2018-10-14 08:41 | XMS REPORT | Clinical Summary ---
Author Author [facility] Address Unknown Phone Unavailable Care Team Providers Care Scrap Separator Name Role Phone Elsie Mejia MD PCP Unavailable Allergies Comments Active Allergy Reactions Severity Noted Date Sulfamethoxazole-Trimetho 11/15/2016 prim Dapagliflozin 11/15/2016 Lisinopril 11/15/2016 Medications End Date Status Medication Sig Dispensed Refills Start Date Active sitaGLIPtin (JANUVIA) 50 Take 50 mg by 0 MG tablet mouth daily. Active metFORMIN (GLUCOPHAGE) Take 1,000 mg 0 1,000 mg tablet by mouth 2 (two) times a day with meals. Active simvastatin (ZOCOR) 20 MG Take 20 mg by 0 tablet mouth nightly. Active losartan (COZAAR) 100 MG Take 100 mg 0 tablet by mouth daily. Active LACTOBACILLUS ACIDOPHILUS Take by 0 (PROBIOTIC ORAL) mouth. Active CALCIUM CARBONATE/VITAMIN Take by 0 D3 (CALCIUM 600 WITH mouth. VITAMIN D3 ORAL) Active polysaccharide iron Take 150 mg 0 complex (FERREX 150) 150 by mouth mg iron capsule daily. Active nitrofurantoin Take 100 mg 0 (MACRODANTIN) 100 MG by mouth 4 capsule (four) times a day. 11/12/2018 Active furosemide (LASIX) 20 mg Take 1 tablet 30 tablet 0 tablet (20 mg total) 8 by mouth 2 (two) times a day. Active omeprazole (PriLOSEC) 40 0 04/25/201 MG capsule 8 Active sitaGLIPtin (JANUVIA) 100 0 04/10/201 MG tablet 8 Active insulin GLARGINE (LANTUS) Inject 25 0 100 unit/mL injection Units under (vial) the skin nightly. Active trazodone/dietary supp. Take by 0 no.8 (TRAZAMINE ORAL) mouth. Active trazodone HCl (TRAZODONE Take 50 mg by 0 ORAL) mouth. 06/12/2019 Active propranolol (INDERAL) 40 Take 1 tablet 60 tablet 0 MG tablet (40 mg total) 8 by mouth 2 (two) times a day. 11/12/2017 Discontinued omeprazole (PriLOSEC) 20 Take 20 mg by 0 MG capsule mouth daily. 11/12/2017 Discontinued citalopram (CeleXA) 20 MG Take 20 mg by 0 tablet mouth daily. 06/12/2018 Discontinued metoprolol tartrate Take 50 mg by 0 (LOPRESSOR) 50 mg tablet mouth 2 (two) times a day. 11/12/2017 Discontinued hydroCHLOROthiazide Take 25 mg by 0 (HYDRODIURIL) 25 MG mouth daily. tablet 11/12/2017 Discontinued gabapentin (NEURONTIN) Take 100 mg 0 100 mg capsule by mouth 3 (three) times a day. 11/02/2017 cyclobenzaprine Take 1 tablet 20 tablet 0 (FLEXERIL) 5 mg tablet (5 mg total) 7 by mouth 3 (three) times a day as needed for muscle spasms for up to 30 days. 03/22/2018 Discontinued amLODIPine (NORVASC) 5 mg Take 5 mg by 0 tablet mouth daily. 04/22/2018 lactulose 20 gram/30 mL Take 30 mL 2700 mL 0 solution (20 g total) 8 by mouth 3 (three) times a day for 30 days. 03/29/2018 Discontinued metoprolol 0 ta-hydrochlorothiaz 8 (LOPRESSOR HCT) 100-25 mg per tablet 03/29/2018 Discontinued GLUCOPHAGE 1,000 mg 0 tablet 8 Active Problems Problem Noted Date Confusion 03/22/2018 Diabetes mellitus 03/22/2018 Depression 03/22/2018 Hypertension 03/22/2018 GERD (gastroesophageal reflux disease) 03/22/2018 Secondary esophageal varices without bleeding 12/26/2016 Cirrhosis of liver without ascites 12/26/2016 Diverticulosis of large intestine without hemorrhage 12/26/2016 Encounters Care Team Description Date Type Specialty Yadi Markham MD Chest pain, unspecified type (Primary Dx) 07/20/2018 Emergency Emergency Medicine - 07/21/2018 Clive Caruso MD 06/12/2018 Orders Only Cardiology Elsie Mejia MD Right shoulder pain, unspecified chronicity 04/16/2018 Hospital Radiology Encounter Elsie Mejia MD Cervical radiculopathy 04/16/2018 Hospital Radiology Encounter Elsie Mejia MD Cervical radiculopathy (Primary Dx); Right shoulder pain, unspecified chronicity 04/16/2018 Transcribe Radiology Orders Janet Balbuena MA Medication change 03/31/2018 Telephone Cardiology Lainey Campos DO Hepatic encephalopathy (Primary Dx) 03/29/2018 Emergency Emergency Medicine Scooby Polanco MD Abouelseoud, Tanseem Hamad Mohamed A, MD Confusion (Primary Dx); Dizziness; Cirrhosis of liver without ascites, unspecified hepatic cirrhosis type 03/22/2018 Emergency General Internal Medicine - 03/23/2018 Yojana Araujo MA Chest pain, unspecified type (Primary Dx) 11/14/2017 Orders Only Cardiology Clive Caruso MD Chest pain, unspecified type (Primary Dx); Essential hypertension; Type 2 diabetes mellitus without complication, without long-term current use of insulin 11/12/2017 Office Visit Cardiology Elsie Mejia MD Nontoxic multinodular goiter 10/30/2017 Hospital Radiology Encounter Elsie Mejia MD 10/30/2017 Hospital Radiology Encounter Elsie Mejia MD Nontoxic multinodular goiter (Primary Dx) 10/24/2017 Transcribe Access Orders after 10/13/2017 Family History Medical History Relation Name Comments Anuerysm Brother Cancer Father GASTRIC CANCER Colon cancer Mother Relation Name Status Comments Brother Alive Father Maternal Grandfather Maternal Grandmother Mother Paternal Grandfather Paternal Grandmother Sister Alive Social History Date Tobacco Use Types Packs/Day Years Used Never Smoker Smokeless Tobacco: Never Used Alcohol Use Drinks/Week oz/Week Comments No Sex Assigned at Date Recorded Not on file Industry Job Start Date Occupation Not on file Not on file Not on file Travel End Travel History Travel Start No recent travel history available. Last Filed Vital Signs Time Taken Vital Sign Reading 07/20/2018 11:08 PM CDT Blood Pressure 113/56 07/20/2018 11:08 PM CDT Pulse 70 07/20/2018 7:02 PM CDT Temperature 37.2 C (99 F) 07/20/2018 11:08 PM CDT Respiratory Rate 18 07/20/2018 11:08 PM CDT Oxygen Saturation 98% - Inhaled Oxygen - Concentration 07/20/2018 7:00 PM CDT Weight 52.2 kg (115 lb) 07/20/2018 7:00 PM CDT Height 154.9 cm (5' 1") 07/20/2018 7:00 PM CDT Body Mass Index 21.73 Plan of Treatment Health Maintenance Due Date Last Done Comments DIABETIC RETINAL EYE EXAM 1945 DIABETIC FOOT EXAM 1957 URINE MICROALBUMIN 1957 COLON CANCER SCREENING 1997 SHINGRIX VACCINE (1 of 2) 1997 ZOSTER VACCINE 2007 PNEUMOCOCCAL 2012 POLYSACCHARIDE VACCINE AGE 65 AND OVER PNEUMOCOCCAL-13 2012 INFLUENZA VACCINE 06/11/2018 BREAST CANCER SCREENING 08/08/2018 08/08/2016, 04/18/2015, 03/18/2014, Additional history exists Procedures Comments Procedure Name Priority Date/Time Associated Diagnosis TROPONIN STAT 07/21/2018 12:26 AM CDT XR CHEST 1 VW PORTABLE STAT 07/20/2018 8:13 PM CDT ECG ED PRELIMINARY Routine 07/20/2018 INTERPRETATION 7:35 PM CDT ZZESTIMATED GFR STAT 07/20/2018 7:33 PM CDT B NATRIURETIC PEPTIDE STAT 07/20/2018 7:33 PM CDT TROPONIN STAT 07/20/2018 7:33 PM CDT COMPREHENSIVE METABOLIC STAT 07/20/2018 PANEL 7:33 PM CDT HC COMPLETE BLD COUNT STAT 07/20/2018 W/AUTO DIFF 7:33 PM CDT ECG 12-LEAD STAT 07/20/2018 7:04 PM CDT CV HOLTER MONITOR GREATER Routine 06/12/2018 THAN 48 HOUR XR SHOULDER 2+ VW RIGHT Routine 04/16/2018 Right shoulder pain, 8:17 AM CDT unspecified chronicity XR CERVICAL SPINE 2 OR 3 Routine 04/16/2018 Cervical radiculopathy VW 8:17 AM CDT URINALYSIS SCREEN AND Routine 03/29/2018 MICROSCOPY, WITH REFLEX 11:57 AM CDT TO CULTURE GRAM STAIN Routine 03/29/2018 11:57 AM CDT URINE CULTURE Routine 03/29/2018 11:57 AM CDT ZZESTIMATED GFR STAT 03/29/2018 11:42 AM CDT AMMONIA LEVEL STAT 03/29/2018 11:42 AM CDT COMPREHENSIVE METABOLIC STAT 03/29/2018 PANEL 11:42 AM CDT PARTIAL THROMBOPLASTIN STAT 03/29/2018 TIME (PTT) 11:42 AM CDT PROTHROMBIN TIME WITH INR STAT 03/29/2018 11:42 AM CDT HC COMPLETE BLD COUNT STAT 03/29/2018 W/AUTO DIFF 11:42 AM CDT POC GLUCOSE Routine 03/29/2018 11:04 AM CDT AMMONIA LEVEL STAT 03/23/2018 8:15 AM CDT ZZESTIMATED GFR Routine 03/23/2018 7:14 AM CDT HC COMPLETE BLD COUNT Routine 03/23/2018 W/AUTO DIFF 7:14 AM CDT BASIC METABOLIC PANEL Routine 03/23/2018 7:14 AM CDT POC GLUCOSE Routine 03/23/2018 6:28 AM CDT TROPONIN Timed 03/23/2018 3:40 AM CDT TROPONIN Timed 03/22/2018 11:20 PM CDT POC GLUCOSE Routine 03/22/2018 7:55 PM CDT URINE DRUGS OF ABUSE Routine 03/22/2018 SCREEN 7:00 PM CDT TROPONIN Timed 03/22/2018 6:38 PM CDT XR ABDOMEN 2 VW AP W Routine 03/22/2018 UPRIGHT AND/OR DECUBITUS 6:10 PM CDT POC GLUCOSE Routine 03/22/2018 3:33 PM CDT AMMONIA LEVEL STAT 03/22/2018 2:39 PM CDT TROPONIN Timed 03/22/2018 2:39 PM CDT XR CHEST 1 VW STAT 03/22/2018 12:[address] HEAD WO CONTRAST STAT 03/22/2018 11:49 AM CDT URINE CULTURE STAT 03/22/2018 11:30 AM CDT URINALYSIS SCREEN AND STAT 03/22/2018 MICROSCOPY, WITH REFLEX 11:29 AM CDT TO CULTURE ZZESTIMATED GFR STAT 03/22/2018 11:17 AM CDT TROPONIN STAT 03/22/2018 11:17 AM CDT LIPASE LEVEL STAT 03/22/2018 11:17 AM CDT PHOSPHORUS LEVEL STAT 03/22/2018 11:17 AM CDT MAGNESIUM LEVEL STAT 03/22/2018 11:17 AM CDT COMPREHENSIVE METABOLIC STAT 03/22/2018 PANEL 11:17 AM CDT HC COMPLETE BLD COUNT STAT 03/22/2018 W/AUTO DIFF 11:17 AM CDT PARTIAL THROMBOPLASTIN STAT 03/22/2018 TIME (PTT) 11:17 AM CDT PROTHROMBIN TIME WITH INR STAT 03/22/2018 11:17 AM CDT ECG 12-LEAD STAT 03/22/2018 11:16 AM CDT ECG ED PRELIMINARY Routine 03/22/2018 INTERPRETATION 11:03 AM CDT ECHOCARDIOGRAM 2D Routine 11/15/2017 Chest pain, unspecified COMPLETE W MMODE SPECTRAL 9:47 AM PILLOW FILLER type COLOR DOPPLER (10341) ECG 12-LEAD Routine 11/12/2017 Chest pain, unspecified 12:44 PM PILLOW FILLER type CYTOLOGY Routine 10/30/2017 (NON-GYNECOLOGICAL) 2:52 PM PILLOW FILLER REQUEST US THYROID BIOPSY Routine 10/30/2017 Nontoxic multinodular 2:38 PM PILLOW FILLER goiter after 10/13/2017 Results * Troponin (07/21/2018 12:26 AM CDT) Only the most recent of 7 results within the time period is included. Troponin <0.30 0.00 - 0.30 ng/mL [facility] Comment: PATHOLOGY AND 0.11 - 1.49 GENOMIC MEDICINE ng/mlMay indicate increased risk of acute coronary syndrome. >=1.5 ng/ml Consistent with acute myocardial infarction. The diagnostic value of a single normal or non-diagnostic result is questionable.Serial samples at 2-6 hour intervals are required to rule out acute myocardial injury. Specimen Plasma specimen Performing Organization Address City/State/Zipcode Phone Number [place] [address] [place] [address] PATHOLOGY AND GENOMIC MEDICINE * XR Chest 1 Vw Portable (07/20/2018 8:13 PM CDT) Narrative Performed At EXAMINATION:XR CHEST 1 VW PORTABLE [facility] CLINICAL HISTORY:chest pain COMPARISON: March 22, 2018 . IMPRESSION: Cardiomediastinal silhouette and pulmonary vasculature are within normal limits. Lungs are clear. No pleural effusion or pneumothorax. Bones are unremarkable. [facility]-[id number] Procedure Note Hm Interface, Radiology Results Incoming - 07/20/2018 8:17 PM CDT EXAMINATION: XR CHEST 1 VW PORTABLE CLINICAL HISTORY: chest pain COMPARISON: March 22, 2018 . IMPRESSION: Cardiomediastinal silhouette and pulmonary vasculature are within normal limits. Lungs are clear. No pleural effusion or pneumothorax. Bones are unremarkable. [facility]-[id number] Performing Organization Address City/[facility]/Zipcode Phone Number [facility] [address] [place] [address] * ECG ED Preliminary Interpretation - NOT AN ORDER (07/20/2018 7:35 PM CDT) Only the most recent of 2 results within the time period is included. Narrative Performed At Yadi Markham MD 07/22/20182:34 AM ECG ED Preliminary Interpretation - Not an Order Performed by: YADI MARKHAM Authorized by: YADI MARKHAM Rate: ECG rate:71 ECG rate assessment: normal Rhythm: Rhythm: sinus rhythm QRS: QRS axis:Normal Conduction: Conduction: normal ST segments: ST segments:Normal T waves: T waves: normal * Estimated GFR (07/20/2018 7:33 PM CDT) Only the most recent of 4 results within the time period is included. GFR Non Af Amer 62 mL/min/1.73 m2 [facility]Y AND GENOMIC MEDICINE GFR Af Amer 75 mL/min/1.73 m2 [facility] Comment: PATHOLOGY AND Chronic kidney disease: <60 GENOMIC MEDICINE mL/min/1.73m2 Kidney failure: <15 mL/min/1.73m2 The estimated GFR is calculated from the IDMS-traceable Modification of Diet in Renal Disease Equation. The accuracy of the calculation is poor when the creatinine is normal. Calculated values >90 mL/min/1.73m2 are not reported. This equation has not been validated in children (<18 years), women, the elderly (>70 years), or ethnic groups other than Caucasians and Americans. Specimen Plasma specimen Performing Organization Address City/State/Zipcode Phone Number [address] [place] [address] PATHOLOGY AND GENOMIC MEDICINE * CBC with platelet and differential (07/20/2018 7:33 PM CDT) Only the most recent of 4 results within the time period is included. WBC 3.1 (L) 4.2 - 11.0 k/uL [facility]Y AND GENOMIC MEDICINE RBC 3.48 (L) 4.04 - 5.86 m/uL [facility]OLOGY AND GENOMIC MEDICINE HGB 11.1 (L) 11.5 - 15.3 g/dL [facility]OLOGY AND GENOMIC MEDICINE HCT 33.1 (L) 34.0 - 45.0 % [facility]OLOGY AND GENOMIC MEDICINE MCV 95.1 80.0 - 98.0 fL [facility]OLOGY AND GENOMIC MEDICINE MCH 31.9 27.0 - 34.0 pg [facility]OLOGY AND GENOMIC MEDICINE MCHC 33.5 31.5 - 36.5 g/dL [facility]OLOGY AND GENOMIC MEDICINE RDW - SD 48.6 37.0 - 51.0 fL [facility]OLOGY AND GENOMIC MEDICINE MPV 10.6 (H) 7.4 - 10.4 fL [facility]OLOGY AND GENOMIC MEDICINE Platelet count 103 (L) 150 - 400 k/uL [facility]OLOGY AND GENOMIC MEDICINE Nucleated RBC 0.00 /100 WBC [facility]OLOGY AND GENOMIC MEDICINE Neutrophils 55.1 36.0 - 66.0 % [facility]OLOGY AND GENOMIC MEDICINE Lymphocytes 22.6 (L) 24.0 - 44.0 % [facility]OLOGY AND GENOMIC MEDICINE Monocytes 15.7 (H) 0.0 - 6.0 % [facility]OLOGY AND GENOMIC MEDICINE Eosinophils 4.9 0.0 - 6.0 % [facility] PATHOLOGY AND GENOMIC MEDICINE Basophils 1.0 0.0 - 1.2 % [facility] PATHOLOGY AND GENOMIC MEDICINE Immature granulocytes 0.7 0.0 - 1.0 % [facility] PATHOLOGY AND GENOMIC MEDICINE Specimen Blood Performing Organization Address City/State/Zipcode Phone Number [facility] [address] [place] [address] PATHOLOGY AND GENOMIC MEDICINE * B natriuretic peptide (07/20/2018 7:33 PM CDT) BNP 34 0 - 100 pg/mL [facility] DEPARTMENT OF PATHOLOGY AND GENOMIC MEDICINE Specimen Blood Performing Organization Address City/State/Zipcode Phone Number [facility] [place] [address] [address] [place] [address] PATHOLOGY AND GENOMIC MEDICINE * Comprehensive metabolic panel (07/20/2018 7:33 PM CDT) Only the most recent of 3 results within the time period is included. Sodium 140 135 - 150 mEq/L [facility] PATHOLOGY AND GENOMIC MEDICINE Potassium 3.6 3.5 - 5.0 mEq/L [facility] PATHOLOGY AND GENOMIC MEDICINE Chloride 100 98 - 112 mEq/L [facility] DEPARTMENT OF PATHOLOGY AND GENOMIC MEDICINE CO2 25 24 - 31 mmol/L [facility] PATHOLOGY AND GENOMIC MEDICINE Anion gap 15@ANIO 7 - 15 mEq/L [facility] PATHOLOGY AND GENOMIC MEDICINE BUN 12 7 - 18 mg/dL [facility] PATHOLOGY AND GENOMIC MEDICINE Creatinine 0.90 0.50 - 0.90 mg/dL [facility] PATHOLOGY AND GENOMIC MEDICINE Glucose 93 65 - 100 mg/dL [facility] PATHOLOGY AND GENOMIC MEDICINE Calcium 10.3 (H) 8.8 - 10.2 mg/dL [facility] PATHOLOGY AND GENOMIC MEDICINE Protein 6.9 6.3 - 8.3 g/dL [facility] PATHOLOGY AND GENOMIC MEDICINE Albumin 3.4 (L) 3.5 - 5.0 g/dL [facility] OF PATHOLOGY AND GENOMIC MEDICINE A/G ratio 1.0 0.7 - 3.8 [facility] PATHOLOGY AND GENOMIC MEDICINE Alkaline phosphatase 166 (H) 0 - 104 U/L [facility] PATHOLOGY AND GENOMIC MEDICINE AST 56 (H) 10 - 35 U/L [facility] PATHOLOGY AND GENOMIC MEDICINE ALT 48 5 - 50 U/L [facility] PATHOLOGY AND GENOMIC MEDICINE Total bilirubin 1.6 (H) 0.2 - 1.2 mg/dL [facility] PATHOLOGY AND GENOMIC MEDICINE Specimen Plasma specimen Performing Organization Address City/State/Zipcode Phone Number [address] [address] PATHOLOGY AND GENOMIC MEDICINE * ECG 12 lead (07/20/2018 7:04 PM CDT) Only the most recent of 3 results within the time period is included. Ventricular rate 71 [facility] Atrial rate 71 [facility] SD interval 164 [facility] QRSD interval 90 [facility] QT interval 428 [facility] QTC interval 465 [facility] P axis 1 30 [facility] QRS axis 1 16 [facility] T wave axis 28 [facility] EKG impression Normal sinus rhythm-Possible [facility] MUSE Anterior infarct , age undetermined-Abnormal ECG-In automated comparison with ECG of -MAR-2018 11:16,-Borderline criteria for Anterior infarct are now present- Performing Organization Address City/State/Zipcode Phone Number [facility] [address] [place] [address] * CV Holter monitor greater than 48 hours (06/12/2018) Narrative Performed At * XR Shoulder 2+ Vw Right (04/16/2018 8:17 AM CDT) Narrative Performed At EXAMINATION:XR SHOULDER 2VW RIGHT [facility] CLINICAL HISTORY:M25.511 Pain in right shoulder, shoulder painright COMPARISON:None. IMPRESSION: There is no evidence of acute right shoulder fracture or dislocation. Moderate degenerative changes are noted of the acromioclavicular joint with marginal osteophyte formation and joint space narrowing. [facility]-[id number] Procedure Note Interface, Radiology Results Incoming - 04/16/2018 9:26 AM CDT EXAMINATION: XR SHOULDER 2 VW RIGHT CLINICAL HISTORY: M25.511 Pain in right shoulder, shoulder pain right COMPARISON: None. IMPRESSION: There is no evidence of acute right shoulder fracture or dislocation. Moderate degenerative changes are noted of the acromioclavicular joint with marginal osteophyte formation and joint space narrowing. [facility]-[id number] Performing Organization Address City/State/Zipcode Phone Number [facility] [address] [place] [address] * XR Cervical Spine 2 Or 3 Vw (04/16/2018 8:17 AM CDT) Narrative Performed At EXAMINATION: XR CERVICAL SPINE 2 OR 3 VW [facility] CLINICAL HISTORY: M54.12 Radiculopathycervical region, M54.12 COMPARISON:Cervical spine x-rays from January 26, 2011. FINDINGS: There is straightening of the cervical lordosis. There is inward concavity of some of the endplates more prominent in mid cervical region. There is ossification in the anterior annulus at C6-7. There is no significant canal stenosis from degenerative change.The cervical curvature is slightly convex towards the right. There are facet and uncovertebral joint hypertrophic changes more prominent in the mid to lower cervical region at the C6-7 level. IMPRESSION: Degenerative changes in the cervical spine. [facility]-[id number] Procedure Note Interface, Radiology Results Incoming - 04/16/2018 12:12 PM CDT EXAMINATION: XR CERVICAL SPINE 2 OR 3 VW CLINICAL HISTORY: M54.12 Radiculopathy cervical region, M54.12 COMPARISON: Cervical spine x-rays from January 26, 2011. FINDINGS: There is straightening of the cervical lordosis. There is inward concavity of some of the endplates more prominent in mid cervical region. There is ossification in the anterior annulus at C6-7. There is no significant canal stenosis from degenerative change. The cervical curvature is slightly convex towards the right. There are facet and uncovertebral joint hypertrophic changes more prominent in the mid to lower cervical region at the C6-7 level. IMPRESSION: Degenerative changes in the cervical spine. [facility]-[id number] Performing Organization Address City/[facility]/Zipcode Phone Number [facility] [address] [place] [address] * Urinalysis screen and microscopy, with reflex to culture (03/29/2018 11:57 AM CDT) Only the most recent of 2 results within the time period is included. Specimen site Clean catch [facility] AND GENOMIC MEDICINE Color, UA Yellow [facility]OLOGY AND GENOMIC MEDICINE Appearance, UA Clear [facility] PATHOLOGY AND GENOMIC MEDICINE Specific gravity, UA 1.014 1.001 - 1.035 [facility]OLOGY AND GENOMIC MEDICINE pH, UA 6.0 5.0 - 8.5 [facility] PATHOLOGY AND GENOMIC MEDICINE Protein, UA Negative Negative [facility] PATHOLOGY AND GENOMIC MEDICINE Glucose, UA Negative Negative [facility] PATHOLOGY AND GENOMIC MEDICINE Ketones, UA Negative Negative [facility] PATHOLOGY AND GENOMIC MEDICINE Bilirubin, UA Negative Negative [facility] PATHOLOGY AND GENOMIC MEDICINE Blood, UA Small (A) Negative [facility] PATHOLOGY AND GENOMIC MEDICINE Nitrite, UA Negative Negative [facility] PATHOLOGY AND GENOMIC MEDICINE Urobilinogen, UA 2.0 (A) <2.0 [facility]OLOGY AND GENOMIC MEDICINE Leukocyte esterase, UA Small (A) Negative [facility]OLOGY AND GENOMIC MEDICINE Epithelial cells, UA Many /HPF [facility] PATHOLOGY AND GENOMIC MEDICINE WBC, UA 10 (A) 0 - 5 /HPF [facility] PATHOLOGY AND GENOMIC MEDICINE RBC, UA <1 0 - 5 /HPF [facility] PATHOLOGY AND GENOMIC MEDICINE Bacteria, UA Trace None seen [facility]OLOGY AND GENOMIC MEDICINE Yeast, UA None seen [facility] PATHOLOGY AND GENOMIC MEDICINE Yeast with pseudohyphae, None seen [facility] PATHOLOGY AND GENOMIC MEDICINE Hyaline casts, UA 1 /LPF [facility] PATHOLOGY AND GENOMIC MEDICINE Specimen Urine Performing Organization Address City/[facility]/Zipcode Phone Number [facility] [address] [place] [address] PATHOLOGY AND GENOMIC MEDICINE * Gram stain (03/29/2018 11:57 AM CDT) Gram stain result No WBC's [facility] DEPARTMENT OF Few Gram positive rods PATHOLOGY AND Few Gram positive cocci in GENOMIC MEDICINE pairs Comment: Specimen Information Specimen Source: Urine Specimen Site: Clean catch Specimen Urine Performing Organization Address City/State/Zipcode Phone Number [facility] DEPARTMENT OF [address] [place] [address] PATHOLOGY AND GENOMIC MEDICINE * Urine culture (03/29/2018 11:57 AM CDT) Only the most recent of 2 results within the time period is included. Urine culture isolate Mixed Gram positive max [facility] DEPARTMENT OF 10-3 cfu/ml PATHOLOGY AND (A) GENOMIC MEDICINE Comment: Specimen Information Specimen Source: Urine Specimen Site: Clean catch Urine culture isolate Mixed Gram positive max [facility] DEPARTMENT OF 10-3 cfu/ml PATHOLOGY AND (A) GENOMIC MEDICINE Specimen Urine Performing Organization Address [facility] [facility] Phone Number [facility] DEPARTMENT OF [address] [place] [address] PATHOLOGY AND GENOMIC MEDICINE * Partial thromboplastin time, activated (03/29/2018 11:42 AM CDT) Only the most recent of 2 results within the time period is included. PTT 33.7 23.0 - 36.0 sec [facility] Comment: PATHOLOGY AND PTT therapeutic range for [facility] unfractionated heparin is 61.0-112.0 seconds which corresponds to Anti-Xa 0.3-0.7 U/ml. Note:Change in Panic Value The PTT Panic Value is changing from 110 sec. to 100 sec. due to new instrumentation and reagents. Correlation studies have been performed to validate this result. Specimen Blood Performing Organization Address City/[facility]/Zipcode Phone Number [facility] OF [address] [place] [address] PATHOLOGY AND GENOMIC MEDICINE * Prothrombin time with INR (03/29/2018 11:42 AM CDT) Only the most recent of 2 results within the time period is included. Prothrombin time 15.6 (H) 12.0 - 15.0 sec [facility] PATHOLOGY AND GENOMIC MEDICINE INR 1.22 (H) 0.92 - 1.12 [facility] Comment: PATHOLOGY AND For patients on anticoagulant GENOMIC MEDICINE therapy, reference ranges below: Indication: INR Value Treatment of Venous Thrombosis, 2.0-3.0 pulmonary emboli, or prophylaxis of a venous thrombosis, or systemic emboli. High dose, high risk patients 3.0-4.5 with mechanical valves. NOTE:INR values over 3.0 are sometimes associated with gastrointestinal hemorrhage, especially values over 4.0. Specimen Blood Performing Organization Address City/[facility] [place] [address] PATHOLOGY AND [employer] [facility] * Ammonia level (03/29/2018 11:42 AM CDT) Only the most recent of 3 results within the time period is included. Ammonia 54 (H) 3 - 37 umol/L [facility] PATHOLOGY AND [employer] [facility] MEDICINE Specimen Plasma specimen Performing Organization Address [facility] [place] [address] PATHOLOGY AND [employer] [facility] * POC glucose (03/29/2018 11:04 AM CDT) Only the most recent of 4 results within the time period is included. POC glucose 198 [facility] PATHOLOGY [facility] [employer] [facility] Specimen Blood Performing Organization Address [facility] [place] [address] PATHOLOGY AND [employer] [facility] * Basic metabolic panel (03/23/2018 7:14 AM CDT) Sodium 142 135 - 150 mEq/L [facility] PATHOLOGY AND [employer] [facility] MEDICINE Potassium 3.7 3.5 - 5.0 mEq/L [facility] PATHOLOGY AND [employer] [facility] MED[facility] Chloride 109 100 - 109 mEq/L [facility] PATHOLOGY AND [employer] [facility] CO2 22 (L) 24 - 32 mmol/L [facility] PATHOLOGY AND [employer] [facility] MEDICINE Anion gap 11 7 - 15 mEq/L [facility] Comment: PATHOLOGY AND Starting from February [employer] MEDICINE , anion gap calculation no longer incorporates potassium. Please note the change. BUN 13 7 - 18 mg/dL [facility] PATHOLOGY AND [employer] [facility] MEDICINE Creatinine 0.9 0.8 - 1.5 mg/dL [facility] PATHOLOGY AND [employer] [facility] MEDIC[facility] Glucose 147 (H) 65 - 100 mg/dL [facility] PATHOLOGY AND GENOMIC MEDICINE Calcium 9.0 8.6 - 10.7 mg/dL [facility] PATHOLOGY AND GENOMIC MEDICINE Specimen Plasma specimen Performing Organization Address City/[facility]/Zipcode Phone Number [facility] [address] [place] [address] PATHOLOGY AND GENOMIC MEDICINE * Urine drugs of abuse screen (03/22/2018 7:00 PM CDT) Amphetamine screen, urine NEG [facility] PATHOLOGY AND GENOMIC MEDICINE Barbiturate screen, urine NEG [facility] PATHOLOGY AND GENOMIC MEDICINE Benzodiazepine screen, NEG [facility] urine PATHOLOGY AND GENOMIC MEDICINE Cocaine screen, urine NEG [facility] PATHOLOGY AND GENOMIC MEDICINE Methadone screen, urine NEG [facility] PATHOLOGY AND GENOMIC MEDICINE Opiates screen, urine NEG [facility] PATHOLOGY AND GENOMIC MEDICINE Phencyclidine screen, NEG [facility] urine PATHOLOGY AND GENOMIC MEDICINE Cannabinoid screen, urine NEG [facility] Comment: PATHOLOGY AND Drug screen minimum GENOMIC MEDICINE concentration of detectability Amphetamines 1000 ng/mL Methamphetamines 1000 ng/mL Barbiturates 300 ng/mL Benzodiazepines 300 ng/mL Cocaine 300 ng/mL Methadone 300 ng/mL Opiates 300 ng/mL Phencyclidine 25 ng/mL Cannabinoids 50 ng/mL Tricyclics 1000 ng/mL Negative test results indicates presumptive evidence of lack of clinically significant drug concentration in this urine specimen. Positive test results are presumptive evidence of clinically significant drug concentration in this urine specimen. Testing performed for medical purposes only. Specimen Urine Performing Organization Address City/[facility] Phone Number [facility] [address] [place] [address] PATHOLOGY AND [employer] Mod[employer] MEDICINE * XR Abdomen 2 Vw Ap W Upright And/Or Decubitus (03/22/2018 6:10 PM CDT) Narrative Performed At Study:XR ABDOMEN 2 VW AP W UPRIGHT AND OR DECUBITUS RADIANT History:ABDOMINAL PAIN COMPARISON:None. IMPRESSION: 3 views of the abdomen. No bowel distention or free air. Moderate amount of stool is present within the colon. Visualized bones are without acute abnormalities. [id number] Procedure Note Interface, Radiology Results Incoming - 03/22/2018 7:13 PM CDT Study:XR ABDOMEN 2 VW AP W UPRIGHT AND OR DECUBITUS History:ABDOMINAL PAIN COMPARISON:None. IMPRESSION: 3 views of the abdomen. No bowel distention or free air. Moderate amount of stool is present within the colon. Visualized bones are without acute abnormalities. [id number] Performing Organization Address [facility] Phone Number [facility] [address] [place] [address] * XR Chest 1 Vw (03/22/2018 12:09 PM CDT) Narrative Performed At EXAMINATION:XR CHEST 1 VW RADIANT CLINICAL HISTORY:Cough COMPARISON:October 01, 2016 IMPRESSION: No acute abnormality single view chest The lungs are clear. The heart is not enlarged. Minimal vascular ectasia of the aorta is present. EKG leads overlie the chest. The bony structures are within normal limits. [id number] Procedure Note Hm Interface, Radiology Results Incoming - 03/22/2018 12:13 PM CDT EXAMINATION: XR CHEST 1 VW CLINICAL HISTORY: Cough COMPARISON: October 01, 2016 IMPRESSION: No acute abnormality single view chest The lungs are clear. The heart is not enlarged. Minimal vascular ectasia of the aorta is present. EKG leads overlie the chest. The bony structures are within normal limits. [id number] Performing Organization Address [facility] Phone [facility] [address] [place] [address] * CT Head Wo Contrast (03/22/2018 11:49 AM CDT) Narrative Performed At EXAMINATION: CT HEAD [facility]AST [facility]ICAL H[facility]: CONFUSION DELERIUMALTERED LOCUNEXPLAINED COMPARISON:October 03, 2017 CT brain TECHNIQUE: Noncontrast enhanced images of the brain were obtained from the skull base to the vertex. Both soft tissue and bone reconstruction algorithms were performed. CT imaging was performed with iterative reconstruction technique and/or automated exposure control to reduce radiation dose. FINDINGS: The brain parenchyma is unremarkable. The frias-white matter differentiation is preserved. No evidence of acute intra or extra-axial hemorrhage, mass, mass effect or acute territorial infarction. There is no acute hydrocephalus. Basal cisterns are patent. There are atherosclerotic calcifications in the carotid siphons and vertebral arteries. Sulci and ventricles are prominent from age-related volume loss. Prominent Virchow-Hever space versus lacunar infarction left basal ganglia unchanged. Mild periventricular white matter decreased attenuation in keeping with small vessel ischemia similar to previous No acute soft tissue hematoma or laceration. Paranasal sinuses shows no acute air-fluid levels. Mastoid air cells are clear.No skull fractures or aggressive bony lesions. IMPRESSION: No acute intracranial abnormality identified. Mild periventricular small vessel changes similar in appearance to previous [id number] Procedure Note Interface, Radiology Results Incoming - 03/22/2018 11:57 AM CDT EXAMINATION: CT HEAD WO CONTRAST CLINICAL HISTORY: CONFUSION DELERIUM ALTERED LOC UNEXPLAINED COMPARISON: October 03, 2017 CT brain TECHNIQUE: Noncontrast enhanced images of the brain were obtained from the skull base to the vertex. Both soft tissue and bone reconstruction algorithms were performed. CT imaging was performed with iterative reconstruction technique and/or automated exposure control to reduce radiation dose. FINDINGS: The brain parenchyma is unremarkable. The frias-white matter differentiation is preserved. No evidence of acute intra or extra-axial hemorrhage, mass, mass effect or acute territorial infarction. There is no acute hydrocephalus. Basal cisterns are patent. There are atherosclerotic calcifications in the carotid siphons and vertebral arteries. Sulci and ventricles are prominent from age-related volume loss. Prominent Virchow-Hever space versus lacunar infarction left basal ganglia unchanged. Mild periventricular white matter decreased attenuation in keeping with small vessel ischemia similar to previous No acute soft tissue hematoma or laceration. Paranasal sinuses shows no acute air-fluid levels. Mastoid air cells are clear. No skull fractures or aggressive bony lesions. IMPRESSION: No acute intracranial abnormality identified. Mild periventricular small vessel changes similar in appearance to previous [id number] Performing Organization Address City/[facility]/Zipcode Phone Number [facility] [address] [place] [address] * Phosphorus level (03/22/2018 11:17 AM CDT) Phosphorus 2.2 (L) 2.5 - 4.5 mg/dL [facility] PATHOLOGY AND GENOMIC MEDICINE Specimen Plasma specimen Performing Organization Address City/[facility]/Zipcode Phone Number [facility] [address] [place] [address] PATHOLOGY AND GENOMIC MEDICINE * Magnesium level (03/22/2018 11:17 AM CDT) Magnesium 1.30 (L) 1.60 - 2.40 mg/dL [facility] PATHOLOGY AND GENOMIC MEDICINE Specimen Plasma specimen Performing Organization Address City/[facility] Phone Number [facility] [address] [place] [address] PATHOLOGY AND GENOMIC MEDICINE * Lipase level (03/22/2018 11:17 AM CDT) Lipase 225 65 - 230 U/L [facility] PATHOLOGY AND GENOMIC MEDICINE Specimen Plasma specimen Performing Organization Address City/State/Zipcode Phone Number [facility] [address] [place] [address] PATHOLOGY AND GENOMIC MEDICINE * Echocardiogram complete w contrast and 3D if needed (11/15/2017 9:47 AM PILLOW FILLER) Ao Root Diameter 2.70 cm [facility] AoV Area, Vmax 2.16 cm2 [facility] AoV Area, VTI 2.02 cm2 [facility] AoV Mean PG 6.33 mmHg [facility] AoV Peak PG 11.95 mmHg [facility] AoV Vmax 1.73 m/s [facility] AoV VTI 0.31 m [facility] IVS,d 1.23 (A) 0.6 - 1.2 cm [facility] IVS/LVPW,2D 0.86 [facility] Left Atrium Dimension 5.39 cm [facility] Anterior LV,d 4.58 cm [facility] LV EF,2D 83.89 % [facility] LV,s 2.49 cm [facility] LVOT area 2.27 cm2 [facility] LVOT Diam,S 1.70 cm [facility] LVOT Vmax 1.64 m/s [facility] LVOT VTI 0.28 m [facility] LVPWD,d 1.44 cm [facility] PV Pk Grad 10.57 mmHg [facility] PV VMAX 1.63 m/s [facility] RVSP (TR) 36.85 mmHg [facility] TR Vpeak 2.67 mm/s [facility] MV E A ratio 0.56 mmHg [facility] TR pk grad 28.41 mmHg [facility] E wave decelartion time 297.36 msec [facility] MV Peak A Boo 1.11 m/s [facility] MV valve area p 1/2 2.55 cm2 [facility] method MV Peak E Boo 0.62 m/s [facility] MV stenosis pressure 1/2 86.23 ms [facility] time AV LVOT peak gradient 10.71 mmHg [facility] RVSP 36.85 mmHg [facility] Ao Root Diameter 2.70 cm [facility] MV mean gradient 1.90 mmHg [facility] LV SYS VOL 22.13 ml [facility] LV ECHEVERRIA VOL 96.27 ml [facility] LA area s A4C 20.48 cm2 [facility] LV SV Teich 2D 74.14 ml [facility] LV Vol s Teich PSAX 22.13 ml [facility] LVOT CO 5.34 l/min [facility] LVOT HR for LVOT CO 84.76 bpm [facility] MR peak grad 4.31 mmHg [facility] MV Vmax 1.04 m [facility] MV VTI Tips 0.19 m [facility] AoV Vmn 1.20 [facility] IVS s 2D 1.58 [facility] LV FS Teich 2D 45.59 [facility] MV AE ratio 1.78 [facility] LV FS Cube 2D 45.59 [facility] LVOT Vmn 1.09 [facility] Aov area Vmn 2.06 cm2 [facility] LVOT mean grad 5.30 mmHg [facility] IVS pct thck PLAX 28.45 % [facility] LV SV Cube 2D 80.51 ml [facility] LV vol d cube 2D 95.97 ml [facility] LV vol s cube 2D 15.46 ml [facility] LVPW pct thck PLAX 21.03 % [facility] LVPW s PLAX 1.74 cm [facility] MV Decel slope 2.09 m/s2 [facility] LA Vol MOD A4C 58.12 ml [facility] Velocity Ratio (V1/V2) 0.95 m/s [facility] EF 77.01 % [facility] E/A ratio 0.56 [facility] Narrative Performed At [facility] The left ventricle chamber size is normal. Left Ventricular ejection fraction is 65 - 70%. Right ventricular size is normal. No hemodynamically significant valvular abnormalities. Spectral Doppler shows impaired relaxation pattern of left ventricular diastolic filling. Normal filling pressures. Inadequate TR jet to estimate pulmonary pressures. Performing Organization Address City/State/Zipcode Phone Number [facility] [address] [place] [address] * Cytology (non-gynecological) request (10/30/2017 2:52 PM PILLOW FILLER) [facility] PATHOLOGY AND GENOMIC MEDICINE Cytology See link below for PDF Lab [facility] (non-gynecological) Report PATHOLOGY AND report GENOMIC MEDICINE Result status This is Final Report to [facility] [id number] PATHOLOGY AND GENOMIC MEDICINE Performing Organization Address City/State/Zipcode Phone Number [facility] [address] [place] [address] PATHOLOGY AND GENOMIC MEDICINE * US Thyroid Biopsy (10/30/2017 2:38 PM PILLOW FILLER) Narrative Performed At EXAMINATION:US [facility]SY [facility] CLINICAL H[facility]ORY:E04.2 Nontoxic multinodular goiter, E04.2 COMPARISON:None. TECHNIQUE: The risks, benefits, and alternatives were discussed with the patient, and written informed consent was obtained. A site for needle placement was selected and theRight neck.The skin was prepped and draped in the usual sterile fashion. After local administration of 1% lidocaine, and using ultrasound guidance, five 25-gauge needle aspiration samples were obtained. The specimenswere given to a orthopaedic technologist in attendance. The specimens were evaluated.The pathologist in attendance stated that the specimens were adequate. The patient has been instructed to follow-up per for the results of the biopsy. IMPRESSION: There were no complications. [id number] Procedure Note Hm Interface, Radiology Results Incoming - 10/30/2017 3:35 PM PILLOW FILLER EXAMINATION: US THYROID BIOPSY CLINICAL HISTORY: E04.2 Nontoxic multinodular goiter, E04.2 COMPARISON: None. TECHNIQUE: The risks, benefits, and alternatives were discussed with the patient, and written informed consent was obtained. A site for needle placement was selected and theRight neck. The skin was prepped and draped in the usual sterile fashion. After local administration of 1% lidocaine, and using ultrasound guidance, five 25-gauge needle aspiration samples were obtained. The specimens were given to a orthopaedic technologist in attendance. The specimens were evaluated. The pathologist in attendance stated that the specimens were adequate. The patient has been instructed to follow-up per for the results of the biopsy. IMPRESSION: There were no complications. [id number] Performing Organization Address City/State/Zipcode Phone Number [facility] [address] [place] [address] after 10/13/2017 Insurance Payer Benefit Subscriber ID Type Phone Address Plan / Group [facility] x[facility]xxx HMO [facility] [place]/HMO BLUE [employer] MEDICARE MEDICARE xxxxxxxxxx Medicare [place], [place] PART A AND B Advance Directives Patient has advance care planning documents, and code status on file. For more i nformation, please contact: Chuy Grimaldo [address] [place] [address] Date Inactivated Comments Code Status Date Activated 03/23/2018 3:34 PM Full Code 03/22/2018 2:09 PM Code Status decision reached by: Patient
--- OUTSIDE RECORDS SUMMARY | 2018-10-14 08:42 | XMS REPORT ---
Author Author Admin, Fleming Organization [facility] Address [address] [place] [address] Phone Allergies, Adverse Reactions, Alerts Allergy Name Reaction Description Start Date Severity Status Provider BACTRIM Swelling Critical Active Blanca Morales MD LISINOPRIL (LISINOPRIL TABS) Moderate Active Elsie Mejia MD Conditions or Problems Problem Name Problem Code Onset Date Status Entry Date Provider Comment Standard Description Annotate Headache 784.0 Active Elsie Mejia MD Headache Renal insufficiency 593.9 Active Elsie Mejia MD Unspecified disorder of kidney and ureter Chest discomfort, atypical 786.59 Active Elsie Mejia MD Other chest pain the sensation can be on either the right or left side, and usually radiates down into the abdomen Cervical radiculopathy, right 723.4 Active Elsie Mejia MD Brachial neuritis or radiculitis NOS Disorder of skin pigmentation 709.00 Active Elsie Mejia MD Dyschromia, unspecified Shoulder pain, right 719.41 Active Elsie Mejia MD Pain in joint involving shoulder region with reduced active and passive range of motion Subconjunctival hemorrhage 372.72 Active 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 Caicedo Weight loss, abnormal 783.21 Active Elsie Mejia MD Loss of weight Lost 18 pounds between February and March 2018 Diabetic retinopathy 250.50 Active Angela Virgilio Pariani DO Diabetes mellitus with ophthalmic manifestations, type [...] ~ 89 Abnormal EKG 794.31 Active Angela Virgilio Pariani DO Nonspecific abnormal electrocardiogram [ECG] [EKG] 02/25 Sinus isaac, Low V QRS, pos inf infarct (seen on previous EKGs) Cardio: Dr. Brown Memory impairment 780.9 Active Angela Virgilio Pariani DO Other general symptoms Splenomegaly 789.2 Active Angela Virgilio Pariani DO Splenomegaly mild, 12.5 cm per U/S 10/26 2/ Fatty Liver Depression, major 296.20 Active Angela Virgilio Pariani DO Major depressive disorder, single episode, unspecified degree 03/27 PHQ 9=21 (severe, on Celexa 40 mg) Vaccine against disease V05.9 Active Elsie Mejia MD Need for prophylactic vaccination and inoculation against unspecified single disease Fatigue 780.79 Active Angela Junior DO Other malaise and fatigue 07/28 [place] Sleepiness Scale=13 Anxiety 300.00 Active Angela Junior DO Anxiety state, unspecified 11/27 MICHELLE 7=12 (moderate anxiety) on Celexa 20 mg Hearing loss 389.9 Active Angela Junior DO Unspecified hearing loss Right > [...] neurological diseases Tinnitus, subjective 388.31 Active Angela Poole Alejandradomitila DO Subjective tinnitus ENT: Dr. Alex Vaughan Dystrophic nails 703.8 Active Mahendra Landis MD Other specified diseases of nail OVERWEIGHT 278.02 Active Elsie Mejia MD Overweight MAMMOGRAM, SCREENING V76.12 Active Elsie Mejia MD Other screening mammogram Hx of diverticulitis V12.79 Active Angela Xieish Alejandradomitila Personal history of other diseases of digestive system GI: Dr. 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 Mejia MD Congenital anomaly of gastrointestinal vessel Anemia, iron deficiency ICD-280.9 Inactive Elsie Mejia MD UTI 599.0 Inactive Angela Virgilio Junior DO Urinary tract infection, site not specified UTI ICD-599.0 Inactive Angela Virgilio Alejandraani DO Urine odor ICD-791.9 Inactive Angela Virgilio Pariani [...] ammonia ~ 89 Syncope ICD-780.2 Inactive Angela Ivrgilio Pariani DO Abdominal pain ICD-789.00 Inactive Angela Virgilio Pariani DO Anemia ICD-285.9 Inactive Angela Virgilio Pariani DO Black stools ICD-578.1 Inactive Angela Virgilio Pariani DO Liver lesion ICD-573.8 Inactive Angela Virgilio Pariani DO Needs vaccination for influenza ICD-V04.81 Inactive Elsie Mejia MD Preventive health care ICD-V70.0 Inactive Elsie Mejia MD Need for prophylactic vaccination against streptococcus pneumoniae (Pneumococcus) V03.82 Inactive Angela Virgilio Pariani DO Need for prophylactic vaccination against Streptococcus pneumoniae [pneumococcus] Osteoporosis, Screening ICD-V82.81 Inactive Elsie Mejia MD Irritability ICD-799.22 Inactive Angela Junior DO Intertrigo, candidal ICD-695.89 Inactive Angela Junior DO Vaginal candidiasis ICD-112.1 Inactive Angela Junior DO Pericarditis, 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 Inactive Elsie Mejia MD BMI 29.0-29.9 Inactive Angela Junior DO Pancytopenia ICD-284.1 Inactive Elsie Mejia MD Supraclavicular lymphadenopathy ICD-785.6 Inactive Angela Junior DO Carotodynia ICD-337.09 Inactive Elsie Mejia MD Dizziness ICD-780.4 Inactive Angela Junior DO Localized swelling on lower legs, bilateral ICD-782.2 Inactive Angela Junior DO Abdominal pain, acute left side ICD-789.00 Inactive Elsie Mejia MD Abdominal pain, right lower quadrant ICD-789.03 Inactive Elsie Mejia MD Atypical face pain ICD-350.2 Inactive Elsie Mejia MD Cellulitis, digit 681.9 Inactive Elsie Mejia MD Cellulitis and abscess of unspecified digit right great toe Cellulitis, digit ICD-681.9 Inactive Elsie Mejia MD Headache, atypical ICD-784.0 Inactive Elsie Mejia MD UTI ICD-599.0 Inactive Elsie Mejia MD Diabetic peripheral neuropathy ICD-250.60 Inactive Angela Junior DO Chest pain, atypical ICD-786.59 Inactive Elsie Mejia MD Ganglion cyst, wrist, left ICD-727.41 Inactive Elsie Mejia MD Neck pain, chronic ICD-723.1 Inactive Elsie Mejia MD MUSCLE CRAMPS ICD-729.82 Inactive Elsie Mejia MD CELLULITIS ICD-682.9 Inactive Elsie Mejia MD INJURY, LEG ICD-916.8 Inactive Elsie Mejia MD TINEA CRURIS ICD-110.3 Inactive Elsie Mejia MD URINARY TRACT INFECTION ICD-599.0 Inactive Elsie Mejia MD NEPHROLITHIASIS ICD-592.0 Inactive Elsie Mejia MD RECURRENT UTI'S, HX OF ICD-V13.00 Inactive Elsie Mejia MD THROMBOCYTOPENIA ICD-287.5 Inactive Angela Junior DO DIVERTICULAR DISEASE ICD-562.10 Inactive Angela Junior DO NEED PROPH VACCINATION W/UNSPEC COMB VACCINE V06.9 Inactive Rose Marie Haynes LVN Need for prophylactic vaccination with unspecified combined vaccine NEED PROPH VACCINATION W/UNSPEC COMB VACCINE ICD-V06.9 Inactive 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 NEED PROPH VACCINATION W/UNSPEC COMB VACCINE ICD-V06.9 Inactive Elsie Mejia MD NEED PROPH VACC&INOCULAT AGAINST VIRAL HEP ICD-V05.3 Inactive Elsie Mejia MD NEED PROPHYLACTIC VACCINATION&INOCULATION FLU ICD-V04.81 Inactive Angela Virgilio Pariani DO Anemia, iron deficiency 280.9 Resolved Elsie Mejia MD Iron deficiency anemia, unspecified Urine odor 791.9 Resolved Angela Virgilio Pariani DO Other nonspecific findings on examination of urine Chest pain, NOS 786.50 Resolved Angela Virgilio Pariani DO Unspecified chest pain BRONCHITIS, ACUTE 466.0 Resolved Elsie Mejia MD Acute bronchitis Cough 786.2 Resolved Elsie Mejia MD Cough Elevated creatinine 790.4 Resolved Angela [...] Resolved Angela Virgilio Pariani DO Anemia, unspecified 16 PSB normochromic normocytic thought to be 2/2 [facility] Black stools 578.1 Resolved Angela Virgilio Pariani DO Blood in stool Liver lesion 573.8 Resolved Angela Virgilio Pariani DO Other specified disorders of liver Hepatology: Dr. Hardy 11/24 MRI w w/o 17 mm RLL concerning for HCC Needs vaccination for influenza V04.81 Resolved Elsie Mejia MD Need for prophylactic vaccination and inoculation against influenza Preventive health care V70.0 Resolved Elsie Mejia MD Routine general medical examination at a health care facility Osteoporosis, Screening V82.81 Resolved Elsie Mejia MD Screening for osteoporosis Irritability 799.22 Resolved Angela Virgilio Alejandraani DO Irritability Intertrigo, candidal 695.89 Resolved Angela Virgilio Pariani DO Other specified erythematous conditions Vaginal candidiasis 112.1 Resolved Angela Virgilio Pariani DO Candidiasis of vulva and vagina Pericarditis, 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 Wilson Supraclavicular lymphadenopathy 785.6 Resolved Angela Virgilio Pariani DO Enlargement of lymph nodes Carotodynia 337.09 Resolved Elsie Mejia MD Other idiopathic peripheral autonomic neuropathy Carotid Doppler 04/26 Nl Dizziness 780.4 Resolved Angela Virgilio Pariani DO Dizziness and giddiness Localized swelling on lower legs, bilateral 782.2 Resolved Angela Virgilio Pariani DO Localized superficial swelling, [...] unspecified sites INJURY, LEG 916.8 Resolved Elsie Mejia MD Other and unspecified superficial injury of [...] PROPH VACCINATION W/UNSPEC COMB VACCINE V06.9 Resolved Elsie Mejia MD Need for prophylactic vaccination with unspecified combined vaccine INSOMNIA 780.52 Resolved Angela Junior DO Insomnia, unspecified NEED PROPH VACC&INOCULAT AGAINST VIRAL HEP V05.3 Resolved Elsie Mejia MD Need for prophylactic vaccination and inoculation against viral hepatitis NEED PROPHYLACTIC VACCINATION&INOCULATION FLU V04.81 Resolved Angela Junior DO Need for prophylactic vaccination and inoculation against influenza DIABETES MELLITUS 250.00 Resolved Elsie Mejia MD Diabetes mellitus without mention of complication, type II or unspecified type, not stated as uncontrolled Medication List Medication Instructions Start Date Stop Date Generic Name NDC Status Provider Patient Instruction METFORMIN HCL 1,000 MG TABLET TAKE ONE TABLET BY MOUTH TWICE A DAY FOR DIABETES METFORMIN HCL 14237813641 Active Elsie Mejia MD Active PROPRANOLOL HCL 20 MG ORAL TABLET One By Mouth Twice a Day for blood pressure and portal hypertension PROPRANOLOL HCL 31243544891 Active Elsie Mejia MD Active MEDICAL COMPRESSION SOCKS Please fit for size ELASTIC BANDAGES & SUPPORTS 41543991134 Active Angela Junior DO Active TRAZODONE HCL 50 MG ORAL TABLET take 1 tab By Mouth Every at bedtime for insomnia TRAZODONE HCL 84638233815 Active Angela Junior DO Active FUROSEMIDE 20 MG ORAL TABLET Take one tab daily NEEDED for swelling FUROSEMIDE 32068165810 Active Elsie Mejia MD Active LACTULOSE ENCEPHALOPATHY 10 GM/15ML ORAL SOLUTION Take 30-45mL By Mouth up to four times daily As Needed for hepatic encephalopathy LACTULOSE ENCEPHALOPATHY 47622064604 Active Eslie Mejia MD Active CALCIUM 500 MG ORAL TABLET take 1 tab By Mouth bid CALCIUM 29972948345 Active Angela Junior DO Active VITAMIN D 1000 UNIT ORAL TABLET take 2 tabs Every day CHOLECALCIFEROL 72017815529 Active Angela Junior DO Active JANUVIA 100 MG ORAL TABLET One By Mouth daily for diabetes SITAGLIPTIN PHOSPHATE 85405482982 Active Angela Junior DO Active LANCETS Use daily to check blood sugar LANCETS 21315878055 Active Radhika Chang [facility] Active ONETOUCH ULTRA BLUE IN VITRO STRIP Use daily to check blood sugar GLUCOSE BLOOD 81911070433 Active Radhika Chang CPHT Active BD PEN NEEDLE SHORT U/F 31G X 8 MM Use as directed to dose lantus INSULIN PEN NEEDLE 30595328931 Active Angela Junior DO Active LANTUS SOLOSTAR 100 UNIT/ML SUBCUTANEOUS SOLUTION PEN-INJECTOR 25 units take at bedtime for diabetes INSULIN GLARGINE 90857484105 Active Angela Junior DO Active LOSARTAN POTASSIUM 100 MG ORAL TABLET take one tab daily for blood pressure LOSARTAN POTASSIUM 61908983489 Active Angela Junior DO Active MACROBID 100 MG ORAL CAPSULE 1 tab By Mouth Twice a Day X 7 days for UTI MACROBID 100 MG ORAL CAPSULE 6926776 NITROFURANTOIN MONOHYD MACRO Inactive KEFLEX 500 MG ORAL CAPSULE One By Mouth Twice a Day for 5 days for bladder infection KEFLEX 500 MG ORAL CAPSULE 554600 CEPHALEXIN Inactive DOXYCYCLINE HYCLATE 100 MG ORAL TABLET one tablet twice daily for 7 days DOXYCYCLINE HYCLATE 100 MG ORAL TABLET 4993750 DOXYCYCLINE HYCLATE Inactive PROAIR HFA 108 (90 BASE) MCG/ACT INHALATION AEROSOL SOLUTION 2 puffs every 4 - 6 hours as needed PROAIR HFA 108 (90 BASE) MCG/ACT INHALATION AEROSOL SOLUTION ALBUTEROL SULFATE Inactive ROBITUSSIN DM 100-10 MG/5ML ORAL SYRUP 10 ml every 6 hrs as needed for cough ROBITUSSIN DM 100-10 MG/5ML ORAL SYRUP DEXTROMETHORPHAN-GUAIFENESIN Inactive AMLODIPINE BESYLATE 5 MG ORAL TABLET 1 tab by mouth daily for blood pressure AMLODIPINE BESYLATE 5 MG ORAL TABLET 934709 AMLODIPINE BESYLATE Inactive FLONASE 50 MCG/ACT NASAL SUSPENSION 1 spray in each nostril Every day prn allergies FLONASE 50 MCG/ACT NASAL SUSPENSION 2880927 FLUTICASONE PROPIONATE Inactive LORATADINE 10 MG ORAL TABLET take 1 tab By Mouth Every day prn for allergies LORATADINE 10 MG ORAL TABLET 670311 LORATADINE Inactive XIFAXAN 550 MG ORAL TABLET take 1 tab By Mouth Twice a Day XIFAXAN 550 MG ORAL TABLET RIFAXIMIN Inactive BACLOFEN 10 MG ORAL TABLET take 1/2-1 tablet By Mouth Three Times a Day As Needed body aches BACLOFEN 10 MG ORAL TABLET 316138 BACLOFEN Inactive LACTULOSE 10 GM/15ML ORAL SOLUTION take 15 ml By Mouth Every day LACTULOSE 10 GM/15ML ORAL SOLUTION 291988 LACTULOSE Inactive FERREX 150 150 MG ORAL CAPSULE take 1 tab By Mouth Every day FERREX 150 150 MG ORAL CAPSULE POLYSACCHARIDE IRON COMPLEX Inactive OMEPRAZOLE 20 MG ORAL CAPSULE DELAYED RELEASE take 1 tabs a day OMEPRAZOLE 20 MG ORAL CAPSULE DELAYED RELEASE 111691 OMEPRAZOLE Inactive ALIGN 4 MG ORAL CAPSULE take 1 tab By Mouth Every day ALIGN 4 MG ORAL CAPSULE PROBIOTIC PRODUCT Inactive BENEFIBER ORAL POWDER As Needed constipation BENEFIBER ORAL POWDER WHEAT DEXTRIN Inactive ASPIR-81 81 MG ORAL TABLET DELAYED RELEASE ASPIR-81 81 MG ORAL TABLET DELAYED RELEASE 342889 ASPIRIN Inactive FLUCONAZOLE 150 MG ORAL TABLET One By Mouth every other day for 3 doses for severe yeast infection FLUCONAZOLE 150 MG ORAL TABLET 686260 FLUCONAZOLE Inactive FARXIGA 10 MG ORAL TABLET One By Mouth daily for diabetes FARXIGA 10 MG ORAL TABLET DAPAGLIFLOZIN PROPANEDIOL Inactive HYDROCHLOROTHIAZIDE 25 MG ORAL TABLET 1/2 by mouth every day for blood pressure HYDROCHLOROTHIAZIDE 25 MG ORAL TABLET 252889 HYDROCHLOROTHIAZIDE Inactive CEPHALEXIN 500 MG ORAL CAPSULE One By Mouth Three Times a Day for skin infection CEPHALEXIN 500 MG ORAL CAPSULE 635354 CEPHALEXIN Inactive CIPRO 500 MG ORAL TABLET 1 by mouth twice a day CIPRO 500 MG ORAL TABLET 108500 CIPROFLOXACIN HCL Inactive CULTURELLE DIGESTIVE HEALTH ORAL CAPSULE 1 By Mouth twice (probiotic) during time of antibiotics CULTURELLE DIGESTIVE HEALTH ORAL CAPSULE LACTOBACILLUS-INULIN Inactive CICLOPIROX 8 % EXTERNAL SOLUTION Apply to affected nail every night for up to 6 months CICLOPIROX 8 % EXTERNAL SOLUTION 855465 CICLOPIROX Inactive GABAPENTIN 300 MG ORAL CAPSULE take 1 tab By Mouth Every hs GABAPENTIN 300 MG ORAL CAPSULE 951567 GABAPENTIN Inactive CLINDAMYCIN HCL 300 MG ORAL CAPSULE one tablet by mouth every 6 hours CLINDAMYCIN HCL 300 MG ORAL CAPSULE 999427 CLINDAMYCIN HCL Inactive BACTRIM DS 800-160 MG ORAL TABLET 1 tab by mouth twice a day for 7 days BACTRIM DS 800-160 MG ORAL TABLET 347371 TRIMETHOPRIM-SULFAMETHOXAZOLE Inactive GLIPIZIDE 10 MG ORAL TABLET One By Mouth Twice a Day for diabetes GLIPIZIDE 10 MG ORAL TABLET 603120 GLIPIZIDE Inactive LOSARTAN POTASSIUM 50 MG ORAL TABLET One By Mouth daily for blood pressure LOSARTAN POTASSIUM 50 MG ORAL TABLET 655001 LOSARTAN POTASSIUM Inactive METOPROLOL TARTRATE 25 MG ORAL TABLET Take one tab By Mouth Twice a Day for blood pressure METOPROLOL TARTRATE 25 MG ORAL TABLET 542767 METOPROLOL TARTRATE Inactive OMEPRAZOLE 40 MG ORAL CAPSULE DELAYED RELEASE One By Mouth every morning for acid reflux OMEPRAZOLE 40 MG ORAL CAPSULE DELAYED RELEASE 958673 OMEPRAZOLE Inactive BACTRIM DS 800-160 MG ORAL TABLET 1 tab by mouth twice a day BACTRIM DS 800-160 MG ORAL TABLET 292569 TRIMETHOPRIM-SULFAMETHOXAZOLE Inactive GLIPIZIDE 10 MG ORAL TABLET take 2 tabs 2x/ day GLIPIZIDE 10 MG ORAL TABLET 567540 GLIPIZIDE Inactive NYSTATIN-TRIAMCINOLONE 804208-7.1 UNIT/GM-% EXTERNAL CREAM apply to affected area 4 times a day as needed NYSTATIN-TRIAMCINOLONE 925973-1.1 UNIT/GM-% EXTERNAL CREAM 4637740 NYSTATIN-TRIAMCINOLONE Inactive CITALOPRAM HYDROBROMIDE 20 MG ORAL TABLET take 1 tab By Mouth Every day X 2 wks then 1/2 tab By Mouth Every day X 2 weeks CITALOPRAM HYDROBROMIDE 20 MG ORAL TABLET 437443 CITALOPRAM HYDROBROMIDE Inactive CLOTRIMAZOLE 1 % EXTERNAL CREAM 5g per day per vagina for 7 days CLOTRIMAZOLE 1 % EXTERNAL CREAM 229909 CLOTRIMAZOLE Inactive FLUCONAZOLE 150 MG ORAL TABLET One By Mouth weekly for yeast infection x 3 weeks FLUCONAZOLE 150 MG ORAL TABLET 113127 FLUCONAZOLE Inactive METFORMIN HCL 1000 MG ORAL TABLET 1 by mouth twice a day for diabetes METFORMIN HCL 1000 MG ORAL TABLET 821811 METFORMIN HCL Inactive ONETOUCH ULTRA BLUE IN VITRO STRIP Use daily to check blood sugar ONETOUCH ULTRA BLUE IN VITRO STRIP GLUCOSE BLOOD Inactive SIMVASTATIN 20 MG ORAL TABLET One By Mouth take at bedtime for cholesterol SIMVASTATIN 20 MG ORAL TABLET 226933 SIMVASTATIN Inactive EVISTA 60 MG ORAL TABLET One By Mouth daily for osteoporosis EVISTA 60 MG ORAL TABLET 0839753 RALOXIFENE HCL Inactive GLIPIZIDE-METFORMIN HCL 2.5-500 MG ORAL TABLET Take one Every Morning and two at night for diabetes GLIPIZIDE-METFORMIN HCL 2.5-500 MG ORAL TABLET 952044 GLIPIZIDE-METFORMIN HCL Inactive BYETTA 10 MCG PEN 10 MCG/0.04ML SUBCUTANEOUS SOLUTION PEN-INJECTOR One By Mouth Twice a Day for diabetes BYETTA 10 MCG PEN 10 MCG/0.04ML SUBCUTANEOUS SOLUTION PEN-INJECTOR EXENATIDE Inactive BD PEN NEEDLE MINI U/F 31G X 5 MM Use to Check Blood Sugar Once Daily BD PEN NEEDLE MINI U/F 31G X 5 MM INSULIN PEN NEEDLE Inactive AMOXICILLIN-POT CLAVULANATE 875-125 MG ORAL TABLET take 1 tab By Mouth Every 8 hrs for Urinary Tract Infection AMOXICILLIN-POT CLAVULANATE 49699381097 No Longer Active Angela Virgilio Junior DO Active MACROBID 100 MG ORAL CAPSULE 1 tab By Mouth Twice a Day X 7 days for UTI NITROFURANTOIN MONOHYD MACRO 41024356331 No Longer Active Angela Virgilio Junior DO Active KEFLEX 500 MG ORAL CAPSULE One By Mouth Twice a Day for 5 days for bladder infection CEPHALEXIN 55991752435 No Longer Active Elsie Mejia MD Active MACROBID 100 MG ORAL CAPSULE 1 by mouth twice a day for 7 days for bladder infection NITROFURANTOIN MONOHYD MACRO 57303057330 No Longer Active Elsie Mejia MD Active DOXYCYCLINE HYCLATE 100 MG ORAL TABLET one tablet twice daily for 7 days DOXYCYCLINE HYCLATE 43592032284 No Longer Active Pat Pond MD Active PROAIR HFA 108 (90 BASE) MCG/ACT INHALATION AEROSOL SOLUTION 2 puffs every 4 - 6 hours as needed ALBUTEROL SULFATE 24425827898 No Longer Active Elsie Mejia MD Active ROBITUSSIN DM 100-10 MG/5ML ORAL SYRUP 10 ml every 6 hrs as needed for cough DEXTROMETHORPHAN-GUAIFENESIN 73162527592 No Longer Active Elsie Mejia MD Active AMLODIPINE BESYLATE 5 MG ORAL TABLET 1 tab by mouth daily for blood pressure AMLODIPINE BESYLATE 34180460935 No Longer Active Angela Junior DO Active FLONASE 50 MCG/ACT NASAL SUSPENSION 1 spray in each nostril Every day prn allergies FLUTICASONE PROPIONATE 17080157847 No Longer Active Elsie Mejia MD Active LORATADINE 10 MG ORAL TABLET take 1 tab By Mouth Every day prn for allergies LORATADINE 99696404868 No Longer Active Elsie Mejia MD Active XIFAXAN 550 MG ORAL TABLET take 1 tab By Mouth Twice a Day RIFAXIMIN 83296929316 No Longer Active Elsie Mejia MD Active BACLOFEN 10 MG ORAL TABLET take 1/2-1 tablet By Mouth Three Times a Day As Needed body aches BACLOFEN 84921849359 No Longer Active Angelaeliane Junior DO Active LACTULOSE 10 GM/15ML ORAL SOLUTION take 15 ml By Mouth Every day LACTULOSE 82674852869 No Longer Active Angela Junior DO Active FERREX 150 150 MG ORAL CAPSULE take 1 tab By Mouth Every day POLYSACCHARIDE IRON COMPLEX 52020484306 No Longer Active Angela Junior DO Active IRON TABLET 1 tab By Mouth Every day FERROUS SULFATE TABS 83254466152 No Longer Active Angela Junior DO Active OMEPRAZOLE 20 MG ORAL CAPSULE DELAYED RELEASE take 1 tabs a day OMEPRAZOLE 65510469399 No Longer Active Angela Junior DO Active ALIGN 4 MG ORAL CAPSULE take 1 tab By Mouth Every day PROBIOTIC PRODUCT 99401881840 No Longer Active Elsie Mejia MD Active BENEFIBER ORAL POWDER As Needed constipation WHEAT DEXTRIN 46968159153 No Longer Active Angela Junior DO Active ASPIR-81 81 MG ORAL TABLET DELAYED RELEASE ASPIRIN 70250083034 No Longer Active Elsie Mejia MD Active FLUCONAZOLE 150 MG ORAL TABLET One By Mouth every other day for 3 doses for severe yeast infection FLUCONAZOLE 22500050074 No Longer Active Elsie Mejia MD Active FARXIGA 10 MG ORAL TABLET One By Mouth daily for diabetes DAPAGLIFLOZIN PROPANEDIOL 76795160652 No Longer Active Elsie Mejia MD Active HYDROCHLOROTHIAZIDE 25 MG ORAL TABLET 1/2 by mouth every day for blood pressure HYDROCHLOROTHIAZIDE 26312592639 No Longer Active Angela Virgilio Junior DO Active CEPHALEXIN 500 MG ORAL CAPSULE One By Mouth Three Times a Day for skin infection CEPHALEXIN 46054133132 No Longer Active Elsie Mejia MD Active CIPRO 500 MG ORAL TABLET 1 by mouth twice a day CIPROFLOXACIN HCL 80041829917 No Longer Active Elsie Mejia MD Active CULTURELLE DIGESTIVE HEALTH ORAL CAPSULE 1 By Mouth twice (probiotic) during time of antibiotics LACTOBACILLUS-INULIN 06663611014 No Longer Active Elsie Mejia MD Active CICLOPIROX 8 % EXTERNAL SOLUTION Apply to affected nail every night for up to 6 months CICLOPIROX 26648101861 No Longer Active Elsie Mejia MD Active GABAPENTIN 300 MG ORAL CAPSULE take 1 tab By Mouth Every hs GABAPENTIN 09188642174 No Longer Active Angela Junior DO Active CLINDAMYCIN HCL 300 MG ORAL CAPSULE one tablet by mouth every 6 hours CLINDAMYCIN HCL 24074829830 No Longer Active Elsie Mejia MD Active BACTRIM DS 800-160 MG ORAL TABLET 1 tab by mouth twice a day for 7 days TRIMETHOPRIM-SULFAMETHOXAZOLE 54273094392 No Longer Active Mahendra Landis MD Active GLIPIZIDE 10 MG ORAL TABLET One By Mouth Twice a Day for diabetes GLIPIZIDE 45177815981 No Longer Active Elsie Mejia MD Active LOSARTAN POTASSIUM 50 MG ORAL TABLET One By Mouth daily for blood pressure LOSARTAN POTASSIUM 22660807904 No Longer Active Angela Junior DO Active METOPROLOL TARTRATE 25 MG ORAL TABLET Take one tab By Mouth Twice a Day for blood pressure METOPROLOL TARTRATE 76891162950 No Longer Active Elsie Mejia MD Active OMEPRAZOLE 40 MG ORAL CAPSULE DELAYED RELEASE One By Mouth every morning for acid reflux OMEPRAZOLE 25044754417 No Longer Active Angela Junior DO Active BACTRIM DS 800-160 MG ORAL TABLET 1 tab by mouth twice a day TRIMETHOPRIM-SULFAMETHOXAZOLE 24151275886 No Longer Active Elsie Mejia MD Active GLIPIZIDE 10 MG ORAL TABLET take 2 tabs 2x/ day GLIPIZIDE 58797818182 No Longer Active Elsie Mejia MD Active NYSTATIN-TRIAMCINOLONE 025640-3.1 UNIT/GM-% EXTERNAL CREAM apply to affected area 4 times a day as needed NYSTATIN-TRIAMCINOLONE 09324162607 No Longer Active Elsie Mejia MD Active CITALOPRAM HYDROBROMIDE 20 MG ORAL TABLET take 1 tab By Mouth Every day X 2 wks then 1/2 tab By Mouth Every day X 2 weeks CITALOPRAM HYDROBROMIDE 49881353971 No Longer Active Elsie Mejia MD Active CLOTRIMAZOLE 1 % EXTERNAL CREAM 5g per day per vagina for 7 days CLOTRIMAZOLE 42304704885 No Longer Active Elsie Mejia MD Active FLUCONAZOLE 150 MG ORAL TABLET One By Mouth weekly for yeast infection x 3 weeks FLUCONAZOLE 64374362759 No Longer Active Elsie Mejia MD Active METFORMIN HCL 1000 MG ORAL TABLET 1 by mouth twice a day for diabetes METFORMIN HCL [id number] No Longer Active Angela Junior DO Active ONETOUCH ULTRA BLUE IN VITRO STRIP Use daily to check blood sugar GLUCOSE BLOOD [id number] No Longer Active Elsie Mejia MD Active TRAZODONE HCL 50 MG ORAL TABLET 1 by mouth nightly at bedtime for sleep TRAZODONE HCL 47712723910 No Longer Active Elsie Mejia MD Active SIMVASTATIN 20 MG ORAL TABLET One By Mouth take at bedtime for cholesterol SIMVASTATIN [id number] No Longer Active Elsie Mejia MD Active EVISTA 60 MG ORAL TABLET One By Mouth daily for osteoporosis RALOXIFENE HCL 23198358125 No Longer Active Angela Junior DO Active GLIPIZIDE-METFORMIN HCL 2.5-500 MG ORAL TABLET Take one Every Morning and two at night for diabetes GLIPIZIDE-METFORMIN HCL 31764102660 No Longer Active Elsie Mejia MD Active NORTRIPTYLINE HCL 25 MG ORAL CAPSULE One By Mouth every evening for sleep NORTRIPTYLINE HCL 85050298713 No Longer Active Elsie Mejia MD Active BYETTA 10 MCG PEN 10 MCG/0.04ML SUBCUTANEOUS SOLUTION PEN-INJECTOR One By Mouth Twice a Day for diabetes EXENATIDE 86962426956 No Longer Active Elsie Mejia MD Active BD PEN NEEDLE MINI U/F 31G X 5 MM Use to Check Blood Sugar Once Daily INSULIN PEN NEEDLE 83125720486 No Longer Active Elsie Mejia MD Active Advance Directives Directive Description Start Date DISCUSSED - NO DECISION MADE Immunizations Vaccine Administration Date Value Standard Description influenza immunization (Flu Vax) has been administered given influenza virus vaccine, unspecified formulation influenza immunization (Flu Vax) has been administered given influenza virus vaccine, unspecified formulation PEDIATRIC PNEUMOCOCCAL VACCINE ([id number]) #1 given pneumococcal conjugate vaccine, 13 valent [...] Value Unit Range Description blood pressure, diastolic 63 mm[Hg] BP barrera blood pressure, systolic 151 mm[Hg] BP sys height E&M 61 [in_us] Bdy height pulse rate E&M 81 /min Heart rate respiratory rate E&M 21 /min Resp rate temperature E&M 98.1 [degF] Body temperature weight E&M 142.80 [lb_av] Weight Measured blood pressure, diastolic 80 mm[Hg] BP barrera blood pressure, systolic 125 mm[Hg] BP sys height E&M 61 [in_us] Bdy height pulse rate E&M 64 /min Heart rate respiratory rate E&M 17 /min Resp rate temperature E&M 98.8 [degF] Body temperature weight E&M 135 [lb_av] Weight Measured blood pressure, diastolic 75 mm[Hg] BP barrera blood pressure, systolic 124 mm[Hg] BP sys height E&M 61 [in_us] Bdy height pulse rate E&M 64 /min Heart rate respiratory rate E&M 19 /min Resp rate temperature E&M 98.2 [degF] Body temperature weight E&M 130.80 [lb_av] Weight Measured blood pressure, diastolic 78 mm[Hg] BP barrera blood pressure, systolic 134 mm[Hg] BP sys height E&M 61 [in_us] Bdy height pulse rate E&M 60 /min Heart rate respiratory rate E&M 18 /min Resp rate temperature E&M 98.5 [degF] Body temperature weight E&M 133.40 [lb_av] Weight Measured blood pressure, diastolic 74 mm[Hg] BP barrera blood pressure, systolic 159 mm[Hg] BP sys height E&M 61 [in_us] Bdy height pulse rate E&M 67 /min Heart rate respiratory rate E&M 17 /min Resp rate temperature E&M 98.0 [degF] Body temperature weight E&M 135 [lb_av] Weight Measured blood pressure, diastolic 75 mm[Hg] BP barrera blood pressure, systolic 159 mm[Hg] BP sys height E&M 61 [in_us] Bdy height pulse rate E&M 61 /min Heart rate respiratory rate E&M 17 /min Resp rate temperature E&M 98.3 [degF] Body temperature weight E&M 135.60 [lb_av] Weight Measured blood pressure, diastolic 72 [...] temperature weight E&M 145.80 [lb_av] Weight Measured Diagnostic Results Date Name Value Unit Range Description Lab Report: Urinalysis, Complete, Microscopic Examination, Basic Metabol ... - Urinalysis mucus on urinalysis Present Not Estab. Office Visit: Adult Followup CHARLIE#[id number] - Chemistry thyroid stimulating hormone, serum 1.58 u[iU]/mL Office Visit: Adult Followup CHARLIE#ashvin - Genetics/fertility eGFR if not 72 mL/min/1.73m2 Lab Report: Urinalysis, Complete, Microscopic Examination, Basic Metabol ... - Urinalysis WBC urine on microscopy 0-5 /hpf {Cells}/[HPF] 0 - 5 Lab Report: CBC With Differential/Platelet, Comp. Metabolic Panel (14), ... - Chemistry very low density lipoproteins 25 mg/dL 5-40 Lab Report: Urinalysis, Complete, Microscopic Examination, Basic Metabol ... - Urinalysis epithelial cells, urine None seen /[LPF] 0 - 10 Lab Report: CBC With Differential/Platelet, Comp. Metabolic Panel (14), ... - Chemistry chloride, serum 102 mmol/L 96-106 urea nitrogen, blood 9 mg/dL 8- Office Visit: Adult Followup Charlie Junior - Urinalysis leukocyte esterase, urine, by dipstick negative Lab Report: CBC With Differential/Platelet, Comp. Metabolic Panel (14), ... - Hematology mean corpuscular hemoglobin concentration, RBC 33.8 G/DL % 31.5-35.7 erythrocyte (RBC) count 3.59 X10E6/UL 10*6/mm3 3.77-5.28 Office Visit: Adult Followup Charlie Junior - Urinalysis nitrite, urine, semiquantitative negative urine color yellow Lab Report: CBC With Differential/Platelet, Comp. Metabolic Panel (14), ... - Chemistry Absolute Neutrophils 2.3 X10E3/UL 10*3/uL 1.4-7.0 Office Visit: Adult Followup Charlie Junior - Urinalysis bilirubin, urine negative Lab Report: CBC With Differential/Platelet, Comp. Metabolic Panel (14), ... - Hematology erythrocyte sedimentation rate 19 mm/h 0-40 Lab Report: CBC With Differential/Platelet, Comp. Metabolic Panel (14), ... - Chemistry LDL cholesterol, serum 110 mg/dL 0-99 urea nitrogen/creatinine ratio, serum 12 12-28 Lab Report: CBC With Differential/Platelet, Comp. Metabolic Panel (14), ... 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 Metabolic Panel (14), ... - Chemistry HDL cholesterol, serum 63 mg/dL >39 Lab Report: CBC With Differential/Platelet, Comp. Metabolic Panel (14), ... - Hematology monocytes as percent of blood leukocytes 10 % Not Estab. Lab Report: CBC With Differential/Platelet, Comp. Metabolic Panel (14), ... - Chemistry ferritin, serum 19 ng/mL 15-150 Lab Report: Fe+TIBC+Blake+B12+Folic, Hematopath Consultation, Smear, Retic ... - Chemistry reticulocyte count, corrected 1.8 % 0.6-2.6 Lab Report: CBC With Differential/Platelet, Comp. Metabolic Panel (14), ... - Chemistry albumin/globulin ratio, serum 1.4 1.2-2.2 creatinine, serum 0.78 mg/dL 0.57-1.00 Lab Report: Fe+TIBC+Blake+B12+Folic, Hematopath Consultation, Smear, Retic ... - Chemistry iron binding capacity, unsaturated 347 ug/dL 118-369 Lab Report: CBC With Differential/Platelet, Comp. Metabolic Panel (14), ... - Chemistry cholesterol, serum 198 mg/dL 111-511 9305/10/26 creatinine, random, urine 148.9 mg/dL Not Estab. bilirubin, serum, total 1.5 mg/dL 0.0-1.2 Lab Report: CBC With Differential/Platelet, Comp. Metabolic Panel (14), ... - Hematology Eosinophil Absolute Count 0.2 X10E3/UL 10*3/uL 0.0-0.4 Office Visit: Adult Followup [facility] - Urinalysis appearance, urine clear blood in urine (hemoglobin) by dipstick negative Lab Report: CBC With Differential/Platelet, Comp. Metabolic Panel (14), ... - Chemistry aspartate aminotransferase (SGOT), serum 45 U/L 0-40 Lab Report: CBC With Differential/Platelet, Comp. Metabolic Panel (14), ... - Hematology red blood cell distribution width 14.2 % 12.3-15.4 Lab Report: Fe+TIBC+Blake+B12+Folic, Hematopath Consultation, Smear, Retic ... - Chemistry B-12, serum 480 pg/mL 211-946 Lab Report: Urinalysis, Complete, Microscopic Examination, Basic Metabol ... - Urinalysis urinalysis, microscopic examination MICRON Lab Report: CBC With Differential/Platelet, Comp. Metabolic Panel (14), ... - Hematology leukocyte count, blood 4.1 X10E3/UL 10*3/mm3 3.4-10.8 Office Visit: Adult Followup [facility] - Urinalysis pH, urine, semiquantitative 5.0 Lab Report: CBC With Differential/Platelet, Comp. Metabolic Panel (14), ... - Chemistry potassium, serum 3.7 mmol/L 3.5-5.2 albumin, serum 4.0 g/dL 3.5-4.8 immature granulocytes, percentage of total cells, blood 0 % Not Estab. Lab Report: CBC With Differential/Platelet, Comp. Metabolic Panel (14), ... - Hematology lymphocyte count, blood, automated 1.1 X10E3/UL 10*3/mm3 0.7-3.1 hematocrit, blood 34.6 % 34.0-46.6 Lab Report: CBC With Differential/Platelet, Comp. Metabolic Panel (14), ... - Chemistry sodium, serum 142 mmol/L 134-144 Lab Report: Urine Culture, Routine, Result - Urinalysis urine culture Escherichia coli Lab Report: CBC With Differential/Platelet, Comp. Metabolic Panel (14), ... - Hematology neutrophils as percent of blood leukocytes 55 % Not Estab. Lab Report: CBC With Differential/Platelet, Comp. Metabolic Panel (14), ... - Urinalysis casts, urine Present /[LPF] None seen Lab Report: CBC With Differential/Platelet, Comp. Metabolic Panel (14), ... - Hematology basophils as percent of blood leukocytes 1 % Not Estab. Internal Correspondence: Pre-Visit Planning - Other List of providers caring for patient Brice Acosta Lab Report: CBC With Differential/Platelet, Comp. Metabolic Panel (14), ... - Chemistry ammonia, plasma 114 UG/DL umol/L 19-87 Lab Report: Fe+TIBC+Blake+B12+Folic, Hematopath Consultation, Smear, Retic ... - Chemistry iron saturation percent, serum 12 % 15-55 Lab Report: Urinalysis, Complete, Microscopic Examination, Basic Metabol ... - Chemistry specific gravity, body fluid 1.018 1.005-1.030 Lab Report: Fe+TIBC+Blake+B12+Folic, Hematopath Consultation, Smear, Retic ... - Chemistry iron, serum 47 ug/dL 27-139 folate, serum 16.2 ng/mL >3.0 Office Visit: Adult Followup Charlie Junior - Urinalysis protein, urine, semiquantitative (dipstick) negative Office Visit: Acute Visit Monalisa Pond - Serology influenza virus A antigen negative Lab Report: Urinalysis, Complete, Microscopic Examination, Basic Metabol ... - Chemistry RBC, Urine 0-2 /hpf /[HPF] 0 - 2 Lab Report: Urinalysis, Complete, Microscopic Examination, Basic Metabol ... - Microbiology microscopic exam See below: Lab Report: CBC With Differential/Platelet, Comp. Metabolic Panel (14), ... - Chemistry carbon dioxide, venous blood 20 mmol/L 20-29 Lab Report: Urinalysis, Complete, Microscopic Examination, Basic Metabol ... - Chemistry nitrate, urine Negative Negative Lab Report: CBC With Differential/Platelet, Comp. Metabolic Panel (14), ... - Chemistry triglyceride, serum, fasting 124 mg/dL 0-149 calcium, serum 9.9 mg/dL 8.7-10.3 microalbumin/creatinine ratio, urine 13.9 MG/G CREAT ug/mg 0.0-30.0 Lab Report: CBC With Differential/Platelet, Comp. Metabolic Panel (14), ... - Urinalysis cast type, urinalysis Hyaline casts N/A Lab Report: CBC With Differential/Platelet, Comp. Metabolic Panel (14), ... - Chemistry alanine aminotransferase (SGPT), serum 36 U/L 0-32 Lab Report: CBC With Differential/Platelet, Comp. Metabolic Panel (14), ... - Hematology mean corpuscular hemoglobin, RBC 32.6 pg 26.6-33.0 Office Visit: Adult Followup [facility] Jackie - Chemistry blood glucose, fasting 124 mg/dL Office Visit: Adult Followup Sandi - Urinalysis specific gravity, urine 1.015 Lab Report: Urinalysis, Complete, Microscopic Examination, Basic Metabol ... - Urinalysis bacteria, urine microscopy None seen None seen/Few Lab Report: CBC With Differential/Platelet, Comp. Metabolic Panel (14), ... - Chemistry lipase, serum 34 U/L [iU]/L 0-59 protein, total, serum 6.8 g/dL 6.0-8.5 alkaline phosphatase, serum 153 U/L 39-117 Lab Report: CBC With Differential/Platelet, Comp. Metabolic Panel (14), ... - Hematology hemoglobin, blood 11.7 g/dL 11.1-15.9 lymphocytes as percent of blood leukocytes 28 % Not Estab. Lab Report: CBC With Differential/Platelet, Comp. Metabolic Panel (14), ... - Chemistry hemoglobin A1C, blood, as % of total hemoglobin 6.2 % 4.8-5.6 Office Visit: Adult Followup Charlie Junior - Urinalysis glucose, urine, semiquantitative negative Lab Report: CBC With Differential/Platelet, Comp. Metabolic Panel (14), ... - Genetics/fertility eGFR if 88 mL/min/1.73m2 >59 Lab Report: CBC With Differential/Platelet, Comp. Metabolic Panel (14), ... - Hematology basophil count, absolute 0.0 x10E3/uL 0.0-0.2 Lab Report: TSH+Free T4, CBC With Differential/Platelet, Comp. Metabolic ... - Chemistry thyroxine, serum, free 1.21 ng/dL 0.82-1.77 Lab Report: CBC With Differential/Platelet, Comp. Metabolic Panel (14), ... - Chemistry globulin, serum 2.8 1.5-4.5 Estimated Glomerular Filtration Rate (calc) 77 mL/min/1.73m2 >59 Lab Report: Urinalysis, Complete, Microscopic Examination, Basic Metabol ... - Basic Occult Blood, urine Negative Negative Lab Report: CBC With Differential/Platelet, Comp. Metabolic Panel (14), ... - Chemistry vitamin D 25-hydroxy, serum 42.2 ng/mL 30.0-100.0 creatine kinase, serum 73 U/L 24-173 Lab Report: CBC With Differential/Platelet, Comp. Metabolic Panel (14), ... - Urinalysis microalbumin/total urine volume 20.7 mg/L Not Estab. Lab Report: CBC With Differential/Platelet, Comp. Metabolic Panel (14), ... - Hematology eosinophils as percent of blood leukocytes 6 % Not Estab. Lab Report: CBC With Differential/Platelet, Comp. Metabolic Panel (14), ... - Chemistry blood glucose, random 77 mg/dL 65-99 Lab Report: Fe+TIBC+Blake+B12+Folic, Hematopath Consultation, Smear, Retic ... - Chemistry iron binding capacity, total 394 ug/dL 250-450 Office Visit: Adult Followup Charlie Junior - Urinalysis urobilinogen, urine, semiquantitative (dipstick) 1 Lab Report: CBC With Differential/Platelet, Comp. Metabolic Panel (14), ... - Hematology monocyte count, blood, automated 0.4 X10E3/UL 10*3/uL 0.1-0.9 platelet count 108 X10E3/UL 10*3/mm3 150-379 Office Visit: Adult Followup Charlie Junior - Urinalysis ketones, urine, by test strip negative Office Visit: Acute Visit Monailsa Pond - Lab influenza B virus antigen negative Encounters Date Encounter Provider Code Facility 23:32:08 CDT Est Patient Exp Problem - [id number] Elsie Mejia MD CPT-38480 [facility] 16:38:43 CDT Est Patient Exp Problem - 39435 Michelle Avila MD CPT-09298 [facility] 00:26:37 CDT Est Patient Detailed - 07391 Elsie Mejia MD CPT-14757 [facility] 07:45:43 CDT Est Patient Detailed - 00643 Elsie Mejia MD CPT-63829 [facility] 09:02:18 CDT Est Patient Exp Problem - 06706 Stacey Cristina [facility] CPT-85509 [facility] 22:50:48 CDT Est Patient Detailed - 90769 Elsie Mejia MD CPT-56329 [facility] 14:09:23 CDT Est Patient Detailed - 84793 Angela Junior DO CPT-90658 [facility] 18:32:26 CDT Ofc Vst, Est Level V Angela Junior DO CPT-18968 [facility] 13:54:47 ICE SKATER Est Patient Detailed - 27123 Angela Virgilio Pariani DO CPT-04194 [facility] 22:43:35 ICE SKATER Est Patient Detailed - 18483 Elsie Mejia MD CPT-83459 [facility] 22:48:43 ICE SKATER Est Patient Detailed - 49322 Elsie Mejia MD CPT-01896 [facility] 11:34:21 ICE SKATER Est Patient Detailed - 88450 Pat Pond MD CPT-47882 [facility] 06:22:23 ICE SKATER Est Patient Detailed - 00752 Elsie Mejia MD CPT-90161 [facility] 14:23:11 CDT Ofc Vst, Est Level V Angela Virgilio Pariani DO [facility]-15412 [facility] 13:37:32 CDT Est Patient Exp Problem - 87561 Pat Pond MD CPT-66081 [facility] 23:43:22 CDT Est Patient Detailed - 35893 Angela Virgilio Pariani DO CPT-06282 [facility] 00:16:24 CDT Est Patient Detailed - 53415 Angela Virgilio Pariani DO CPT-34292 [facility] 15:43:14 CDT Est Patient Detailed - 94288 Angela Virgilio Pariani DO CPT-03299 [facility] 12:11:14 CDT Est Patient Detailed - 93162 Angela Virgilio Pariani DO CPT-09902 [facility] 23:49:22 CDT Est Patient Detailed - 69684 Angela Virgilio Pariani DO CPT-80174 [facility] 21:24:58 ICE SKATER Est Patient Detailed - 68345 Angela Virgilio Pariani DO CPT-99685 [facility] 21:59:22 ICE SKATER Est Patient Detailed - 32562 Angela Virgilio Pariani DO CPT-67717 [facility] 19:19:29 ICE SKATER Est Patient Detailed - 37959 Angela Virgilio Pariani DO [facility]-85130 [facility] 20:03:07 ICE SKATER Ofc Vst, Est Level IV Angela Junior DO CPT-43849 [facility] 16:06:39 CDT Est Patient Detailed - 19447 Angela Junior DO CPT-02789 [facility] 19:14:01 CDT New Patient Comprehensive - 02462 Angela Junior DO CPT-02090 [facility] 10:32:33 CDT Est Patient Detailed - 60759 Angela Junior DO CPT-02758 [facility] 22:09:58 CDT Est Patient Exp Problem - 07979 Elsie Mejia MD CPT-94634 [facility] 09:50:02 CDT Est Patient Detailed - 42056 Elsie Mejia MD CPT-27911 [facility] 16:41:34 CDT Est Patient Exp Problem - 11339 Brice Bruner MD CPT-12503 [facility] 16:41:36 CDT Est Patient Exp Problem - 06549 Brice Bruner MD CPT-05530 [facility] 13:48:02 CDT Est Patient Detailed - 10583 Elsie Mejia MD CPT-48633 [facility] 16:08:28 CDT Est Patient Detailed - 24091 Elsie Mejia MD CPT-52118 [facility] 00:40:45 ICE SKATER Est Patient Exp Problem - 17225 Pat Pond MD CPT-75319 [facility] 12:58:57 ICE SKATER Est Patient Exp Problem - 45255 Pat Pond MD CPT-32067 [facility] 15:01:25 ICE SKATER Est Patient Exp Problem - 78283 Elsie Mejia MD CPT-18603 [facility] 22:16:02 ICE SKATER Est Patient Detailed - 48764 Elsie Mejia MD CPT-47752 [facility] 11:47:09 ICE SKATER Est Patient Exp Problem - 56503 Elaina Fisher D.O. CPT-32654 [facility] 23:06:44 CDT Est Patient Exp Problem - 72053 Elsie Mejia MD CPT-71118 [facility] 15:08:29 CDT Est Patient Exp Problem - 96399 Elsie Mejia MD CPT-83621 [facility] 18:30:12 CDT Ofc Vst, Est Level III Mahendra Landis MD CPT-01418 [facility] 08:36:28 CDT Est Patient Exp Problem - 41720 Elsie Mejia MD CPT-55774 [facility] 15:11:18 CDT Est Patient Exp Problem - 52814 Blanca Morales MD CPT-88799 [facility] 15:03:21 CDT Est Patient Exp Problem - 10592 Elsie Mejia MD CPT-43728 [facility] 09:53:13 CDT Est Patient Exp Problem - 59072 Jc Mo DO CPT-60823 [facility] 07:46:51 CDT Est Patient Exp Problem - 43778 Elsie Mejia MD CPT-42432 [facility] 09:06:40 ICE SKATER Est Patient Detailed - 55534 Fabian Allison MD CPT-21484 [facility] 10:16:16 ICE SKATER Est Patient Detailed - 98389 Elsie Mejia MD CPT-42466 [facility] 21:51:07 CDT Est Patient Detailed - 43439 Elsie Mejia MD CPT-18196 [facility] 09:06:36 CDT Est Patient Nurse - Only Visit - 08705 Rose Marie Haynes LVN CPT-98633 [facility] 19:34:33 ICE SKATER Est Patient Exp Problem - 80275 Elsie Mejia MD CPT-26160 [facility] 08:45:48 ICE SKATER Est Patient Nurse - Only Visit - 99050 Rose Marie Haynes [employer] CPT-17523 [facility] 21:38:53 CDT Est Patient Detailed - 88544 Elsie Mejia MD CPT-92687 [facility] 22:28:57 CDT Ofc Vst, Est Level IV Elsie Mejia MD CPT-67298 [facility] Procedures Code Procedure Name Date Entry Date Standard Description CPT-54122 INFLUENZA VACCINE QUADRIVALENT 3 YRS PLUS IM 11:41:49 CDT CPT-42415 Glucose Stick 16:38:43 CDT CPT-50075 Urinalysis - Dip only - In House 13:54:41 ICE SKATER CPT-91906 INFLUENZA VACCINE QUADRIVALENT 3 YRS PLUS IM 12:19:09 ICE SKATER CPT-10131 Urinalysis - Dip only - In House 11:50:50 ICE SKATER CPT-63248 Rapid Flu - In House 15:39:38 ICE SKATER CPT-69632 EKG - Interpretation & Report Only 12:51:49 CDT CPT-46819 EKG - Tracing Only 12:51:48 CDT CPT-49809 INFLUENZA VACCINE QUADRIVALENT 3 YRS PLUS IM 11:10:35 CDT CPT-17970 Admin of Vaccine - Injection - 1 11:10:35 CDT CPT-19902 Glucose Stick 11:20:23 ICE SKATER CPT-39839 Glucose Stick 16:06:39 CDT CPT-22756 Prevnar (PCV13) IM 10:32:35 CDT CPT-HE001 Health Education/Supportive Counseling 12:54:09 CDT CPT-09394 TD - Tetanus & Diptheria Toxoids 12:40:28 CDT CPT-73472 Influenza - Adult - Injection 11:47:17 ICE SKATER CPT-53590 EKG - Interpretation & Report Only 15:11:18 CDT CPT-36138 Admin of Vaccine - Injection - 1 10:16:46 ICE SKATER CPT-74194 Influenza - Adult - Injection 10:16:46 ICE SKATER CPT-56972 Urinalysis - Dip only - In House 09:06:40 ICE SKATER CPT-21053 Hepatitis B - Adult 08:45:48 ICE SKATER CPT-22274 Admin of Vaccine - Injection - 1 08:45:48 ICE SKATER CPT-54063 Hepatitis B - Adult 09:06:36 CDT CPT-52309 Admin of Vaccine - Injection - 1 09:06:36 CDT CPT-60335 Influenza - Adult - Injection 10:19:53 CDT CPT-48464 Hepatitis B - Adult 10:19:53 CDT
[2018-10-14 13:00] VITALS: BP 147/78
== END | disposition home or self-care (01) ==
LOC: OR 08:37
PROVIDERS: ATTEND Internal Medicine Gastroenterology
DX: K29.70 Gastritis, unspecified, without bleeding (principal); K74.60 Unspecified cirrhosis of liver; I85.10 Secondary esophageal varices without bleeding; K44.9 Diaphragmatic hernia without obstruction or gangrene; I86.4 Gastric varices; K76.6 Portal hypertension; K31.89 Other diseases of stomach and duodenum; I10 Essential (primary) hypertension; E11.9 Type 2 diabetes mellitus without complications; N28.9 Disorder of kidney and ureter, unspecified; Z88.1 Allergy status to other antibiotic agents; Z88.2 Allergy status to sulfonamides; Z88.8 Allergy status to other drugs, medicaments and biological substances; Z01.810 Encounter for preprocedural cardiovascular examination; Z01.812 Encounter for preprocedural laboratory examination; Z79.4 Long term (current) use of insulin; Z80.0 Family history of malignant neoplasm of digestive organs
CPT/HCPCS: 36415 ×2; 43239; 80053; 82948; 85025; 85610; 85730; 93005; J2250